=== PATIENT | female | born 1980 | race Caucasian/White ===

== ENCOUNTER → 2020-11-08 01:17 | Outpatient (CLI) | payer OTHER, SELFPAY ==
[2020-11-08 20:24] LABS: SARS-CoV-2 RNA PCR Negative
== END ==
PROVIDERS: PCP Family Medicine; Visit Provider Physician Assistant Medical
DX: R09.89 Other specified symptoms and signs involving the circulatory and respiratory systems (principal); R68.83 Chills (without fever); R19.7 Diarrhea, unspecified; R09.81 Nasal congestion; R52 Pain, unspecified; Z20.822 Contact with and (suspected) exposure to COVID-19
CPT/HCPCS: C9803; U0003; U0005

== ENCOUNTER 2023-01-07 11:02 | Emergency (ER) | payer OTHER, SELFPAY ==
--- NOTE | ~2023-01-07 | XR_ITS ---
EXAMINATION:XR cervical spine 4-5V DATE: 01/07/2023 11:38 INDICATION: Neck pain, right arm numbness TECHNIQUE: AP, lateral, lateral swimmers and odontoid views of the cervical spine are provided. COMPARISON: 12/11/2015 FINDINGS: Alignment is normal. The odontoid process is intact. No fracture is identified. The vertebr al body heights are maintained. There is mild loss of intervertebral disc space height at C5-6, C6-7 and C7-T1. Small degenerative osteophytes project from the anterior endplates of multiple vertebral b odies. There is multilevel mild facet and uncovertebral joint osteoarthritis. Prevertebral soft tissu es are normal. IMPRESSION: 1. Mild cervical spondylosis without acute findings or significant interval change. Reviewed, dictated and finalized at location L. ER ASSOCIATE IMPRESSION: 1. Mild cervical spondylosis without acute findings or significant interval shadi e.
--- NOTE | 2023-01-07 11:15 | ED.GENADULT ---
HPI - General Adult General Chief complaint: Extremity Problem,Nontraumatic Stated complaint: upper extremity pain Time Seen by Provider: 01/07/23 11:17 Source: patient, RN notes reviewed and old records reviewed Mode of arrival: ambulatory Limitations: no limitations History of Present Illness HPI narrative: 42-year-old female with history chronic neck pain, hypertension, pre diabetes, migraines and acid reflux presents to the [facility] with complaints of posterior sure right shoulder pain, radiating down her arm occasionally having fingers 3 and 4 numb Patient has a history of chronic neck pain, arthritis. Has seen a chiropractor in the past for similar episode Patient reports that the pain starts at the base of the right side of her neck and radiates into her shoulder and occasionally down her arm with occasional numbness in fingers 3 and 4. Denies any trauma. No neuro deficits. Positive radial pulse. Sensation intact in all 5 fingers. States that she has tried [id number] products such as Tylenol Motrin with no relief. Related Data Home Medications Medication Instructions Recorded Confirmed aspirin 81 mg tablet,delayed 81 mg PO DAILY 02/22/19 01/07/23 release (Adult Low Dose Aspirin) cholecalciferol (vitamin D3) 125 10,000 unit PO DAILY 02/22/19 01/07/23 mcg (5,000 unit) tablet cyanocobalamin (vitamin B-12) 1,000 mcg PO DAILY 02/22/19 01/07/23 1,000 mcg tablet levonorgestrel 21 mcg/24 hours (8 1 device intrauterine ONCE 02/22/19 01/07/23 yrs) 52 mg intrauterine device (Mirena) propranolol 80 mg capsule,extended 80 mg PO DAILY 02/22/19 01/07/23 release 24 hr rizatriptan 10 mg tablet 10 mg PO .COMPLEX 02/22/19 01/07/23 Allergies Allergy/AdvReac Type Severity Reaction Status Date / Time No Known Allergies Allergy Verified 01/07/23 11:15 Review of Systems Review of Systems: All systems reviewed & are unremarkable except as noted in HPI and below Constitutional: Constitutional: Reports no additional constitutional complaints Eyes: Eyes: Reports no additional eye complaints ENT: Reports system reviewed and no additional complaints, except as documented Cardiovascular: Cardiovascular: Reports no additional cardiovascular complaints, Denies chest pain and Denies dyspnea Respiratory: Respiratory: Reports no additional respiratory complaints, Denies chest congestion, Denies cough and Denies dyspnea Gastrointestinal: Gastrointestinal: Reports no additional gastrointestinal complaints, Denies abdominal pain, Denies nausea and Denies vomiting Musculoskeletal: Musculoskeletal: Reports as per HPI Integumentary/Breasts: Skin/Breast: Reports system reviewed and no additional complaints, except as docu Neurologic: Reports system reviewed and no additional complaints, except as documented Psychiatric: Psychiatric: Reports no additional psychiatric complaints Allergic/Immunologic: Allergic/Immunologic: Reports no additional allergic/immunologic complaints PMFSH Past Medical History Medical History COVID-19 Surgical History Surgical History H/O section Family History Family History Grandparent Carcinoma of colon Family history of malignant neoplasm of breast in first degree relative Family history of elevated blood lipids Family history of alcoholism Family history of malignant neoplasm Family history of malignant neoplasm of breast Mother Hypertension Sibling Hypertension Other Diabetes mellitus Social History Social History Smoking status: Never smoker Alcohol intake: current Lack of Transportation: No Lack of Food: Never True Current Housing: I Have Housing Concerned About Future Housing: No Difficulty Paying Gas/Electric Bills: No Di
[2023-01-07 11:16] VITALS: BP 157/92; PULSE 76; RESP 18; TEMP 36.4; O2SAT 100
== END 2023-01-07 11:55 | disposition home or self-care (01) ==
PROVIDERS: Emergency Provider Nurse Practitioner; PCP Family Medicine
DX: M47.812 Spondylosis without myelopathy or radiculopathy, cervical region (principal); M54.12 Radiculopathy, cervical region; Z86.16 Personal history of COVID-19
CPT/HCPCS: 72050; 99213; G0463

== ENCOUNTER 2024-01-26 10:58 | Outpatient (CLI) | payer OTHER, SELFPAY ==
[2024-01-26 18:59] LABS: Basophils Absolute Auto 0.1 K/mm3 (0.0-0.1); Basophils Percent Auto 1.1 % (0.2-1.2); Eosinophils Absolute Auto 0.1 K/mm3 (0-0.3); Eosinophils Percent Auto 0.9 % (0-4.4); Hemoglobin 13.1 g/dL (12.0-15.0); Immature Granulocyte Absolute 0.03 K/mm3 (0.00-0.031); Immature Granulocyte Percent A 0.3 % (0-0.5); Lymphocytes Absolute Auto 1.27 K/mm3 (0.9-3.2); Lymphocytes Percent Auto 14.4 % (18.3-44.2); Mean Corpuscular HGB Conc 29.8 g/dl (32-36); Mean Corpuscular Volume 80.6 fl (80-100); Mean Platelet Volume 11.2 fl (7.4-10.4); Monocytes Absolute Auto 0.5 K/mm3 (0.1-0.6); Monocytes Percent Auto 5.4 % (2.6-8.5); Neutrophils Absolute Auto 6.9 K/mm3 (1.3-6.7); Neutrophils Percent Auto 77.9 % (45.5-73.1); Platelet Count Result 324 k/mm3 (150-375); Red Blood Count 5.46 M/mm3 (4.2-5.4); Red Cell Distribution Width 17.9 % (11.5-14.5); White Blood Count 8.8 K/mm3 (4.5-10.0)
[2024-01-26 19:02] LABS: Alanine Aminotransferase 21 U/L (6-35); Albumin Level 3.8 g/dL (3.5-5.1); Alkaline Phosphatase 98 U/L (38-126); Anion Gap 2 mmol/L (4-12); Aspartate Amino Transferase 56 U/L (14-36); Bilirubin,Total 0.5 mg/dL (0.2-1.3); Blood Urea Nitrogen 11 mg/dL (7-17); Calcium 8.7 mg/dL (8.4-10.2); Carbon Dioxide 30 mmol/L (22-30); Chloride 107 mmol/L (98-107); Cholesterol 183 mg/dL (0-200); Estimated Glomerular Filt Rate > 60; Glucose 104 mg/dL (65-110); HDL Direct 35 mg/dL; Potassium 4.7 mmol/L (3.4-5.0); Sodium 139 mmol/L (137-145); Triglycerides 146 mg/dL (<150)
[2024-01-26 19:12] LABS: LDL Cholesterol Direct 99 mg/dL
[2024-01-26 20:26] LABS: Anisocytosis 1+; Hypochromasia 1+; Platelet Estimate Adequate (Adequate); Schistocytes None Seen
[2024-01-26 21:15] LABS: Hemoglobin A1C 6.3 % (<5.7)
== END 2024-01-26 10:59 | disposition home or self-care (01) ==
LOC: ANHGOSHLAB 11:00
PROVIDERS: PCP Family Medicine; Visit Provider Family Medicine
DX: E78.2 Mixed hyperlipidemia (principal); E78.5 Hyperlipidemia, unspecified; R73.03 Prediabetes
CPT/HCPCS: 36415; 80053; 80061; 83036; 85025

== ENCOUNTER 2024-08-12 22:28 | Inpatient (IN) | payer OTHER, SELFPAY ==
--- NOTE | ~2024-08-12 | CT_ITS ---
CT of the Abdomen and Pelvis: Indication: Abdominal pain Technique: 2.5 mm axial scans were obtained through the abdomen and pelvis following intravenous adm inistration of 100 cc of Omnipaque 350. Dose reduction technique was used on this scan by utilizing a utomated exposure control and iterative reconstruction technique. The dose-length product (DLP) was 1 650.68 mGy-cm. Findings: Scans through the lung bases are unremarkable. The liver, spleen, pancreas, gallbladder, adrenals and kidneys are within normal limits. No evidence of aortic aneurysm. No lymphadenopathy. There is a large appendicolith at the base of the appendix measuring 18 mm in diameter. Appendix is d iffusely dilated, measuring up to 16 mm in diameter. There is extensive periappendiceal inflammatory stranding and change with small amount of fluid. No abscess or free air evident. There is probable re active wall thickening of the terminal ileum which is adjacent. No bowel obstruction evident. Images through the pelvis were performed. Urinary bladder unremarkable. No pelvic mass seen. Small am ount of pelvic ascites present. There is 14 mm anterolisthesis of L5 over S1 with severe degenerative disc narrowing and probable par tial fusion across L5-S1 disc space. Impression: Acute appendicitis with extensive periappendiceal inflammatory change and/or developing phlegmon. No abscess or free air. Reviewed, dictated and finalized at [facility]. Impression: Acute appendicitis with extensive periappendiceal inflammatory change and/or de veloping phlegmon. No abscess or free air.
--- OUTSIDE RECORDS SUMMARY | 2024-08-12 22:30 | XMS_ITS | Clinical Summary ---
Author Organization [facility] Address [address] [place] [address] Care Team Providers Care Children'S Lunchroom Supervisor Name Role Phone Dallas Milton MD Primary Care Provider [phone] [phone] Allergies No known active allergies Medications omega 7-skf-mqw-fish oil 100-160-1,000 mg capsule Active omeprazole (PriLOSEC) 40 mg capsule TK 1 C PO D 3 09/04/2017 Active simvastatin (ZOCOR) 40 mg tablet TK 1 T PO ONCE D 1 09/04/2017 Active cyanocobalamin (Vitamin B-12) 100 mcg tabletIndication s:Prevention of Vitamin B12 Deficiency Active cholecalciferol (VITAMIN D-3) 5,000 unit tablet Active metFORMIN XR (GLUCOPHAGE XR) 500 mg 24 hr tablet Take 1 tablet (500 mg total) by mouth 2 (two) times a day 12/12/2021 Active rizatriptan (MAXALT) 10 mg tablet TAKE 1 TABLET BY MOUTH AT ONSET OF HEADACHE. MAY REPEAT IN 2 HOURS IF UNRESOLVED. 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 Migraine without aura and responsive to treatmen t 02/21/2016 Paresthesia 02/21/2016 Immunizations Immunization Administration Dates Next Due Influenza, Trivalent, Cell C ulture-based MDCK, Preservative Free, Antibiotic Free, Intramuscular 12/30/2023 Surgical History Surgery Date Site/Laterality Comments MANDIBLE SURGERY Jaw Surgery - TMJ (Added by TW Conv) [place] DELIVERY ONLY Section - (Added by TW Conv) Family History Medical History Relation Name Comments Stroke Brother Family history of cerebrovascular accident (CVA) - (Added by TW Conv) Breast cancer Maternal Grandmother Family history of malignant neoplasm of breast - (Added by TW Conv) Colon cancer Maternal Grandmother Colon c ancer - (Added by TW Conv) Relation Name Status Comments Brother Maternal Grandmother Social History Tobacco Use Types Packs/Day Years Used Date Smoking Tobacco: Never Smokeless Tobacco: Never Tobacco Cessation:Counseling Given: Not Answered Comments Unknown Sex and Gender Information Value Date Recorded Sex Assigned at Not on file Legal Sex Female 12:18 AM DIRECTOR OF BUSINESS SERVICES Gender Identity Not on file Sexual Orientation Not on file Obstetrics History Last Filed Vital Signs Vital Sign Reading Time Taken Comments Blood Pressure 122/85 2024 8:26 AM DIRECTOR OF BUSINESS SERVICES Pulse 71 2024 8:26 AM DIRECTOR OF BUSINESS SERVICES Temperature 36.6 C (97.8 F) 2024 8:26 AM DIRECTOR OF BUSINESS SERVICES Respiratory Rate 18 01/25/2023 11:12 AM DIRECTOR OF BUSINESS SERVICES Oxygen Saturation 97% 2024 8:26 AM DIRECTOR OF BUSINESS SERVICES Inhaled Oxygen Concentration - - Weight 112.9 kg (249 lb) 2024 8:26 AM DIRECTOR OF BUSINESS SERVICES Height 167.6 cm (5' 6) 2024 8:26 AM DIRECTOR OF BUSINESS SERVICES Body Mass Index 40.19 2024 8:26 AM DIRECTOR OF BUSINESS SERVICES Plan of Treatment Health Maintenance Due Date Last Done Comments Breast Cancer Screening-Mammogram 1979 Cervical Cancer Screening 1979 Colon Cancer Screening-Colonoscopy 1979 Depression Screening 1979 Hepatitis C Screening 1979 DTaP/Tdap/Td Vaccine (1 - Tdap) 1990 Hepatitis B Screening 1997 Regular Well Visit/Exam 18-64 1997 Covid-19 Vaccine (2023-2 5 season) 2023 04/14/2020, 03/24/2020 Influenza Vaccine Completed 12/30/2023, 02/08/2020 HPV Vaccines Aged Out No longer eligi ble based on patient's age to complete this topic Pneumococcal vaccine <65 Aged Out No longer eligible based on patient's age to complete this topic Insurance [facility] [employer] [facility]O Address: [place] [id number] [employer] [employer] [facility] [employer]O Address: [id number] [place] [address] Care Teams Children'S Lunchroom Supervisor Relationship Specialty Start Date End Date Dallas Milton MD PCP - General 10/23/16
--- OUTSIDE RECORDS SUMMARY | 2024-08-12 22:30 | XMS_ITS | Referral Summary ---
Author Organization [facility] Address [address] [place] [address] Care Team Providers Care Assessment Specialist Name Role Phone Dallas Milton MD Primary Care Provider [phone] [phone] Allergies No known active allergies Medications omega 6-udr-oiz-fish oil 100-160-1,000 mg capsule Active omeprazole (PriLOSEC) [...] MDCK, Preservative Free, Antibiotic Free, Intramuscular 12/30/2023 Social History Tobacco Use Types Packs/Day Years Used Date Smoking Tobacco: Never Smokeless Tobacco: Never Tobacco Cessation:Counseling Given: Not Answered Comments Unknown Sex and Gender Information Value Date Recorded Sex Assigned at Not on file Legal Sex Female 12:18 AM ORNAMENTAL BRICK INSTALLER Gender Identity Not on file Sexual Orientation Not on file Last Filed Vital Signs Vital Sign Reading Time Taken Comments Blood Pressure 122/85 2024 8:26 AM ORNAMENTAL BRICK INSTALLER Pulse 71 2024 8:26 AM ORNAMENTAL BRICK INSTALLER Temperature 36.6 C (97.8 F) 2024 8:26 AM ORNAMENTAL BRICK INSTALLER Respiratory Rate 18 01/25/2023 11:12 AM ORNAMENTAL BRICK INSTALLER Oxygen Saturation 97% 2024 8:26 AM ORNAMENTAL BRICK INSTALLER Inhaled Oxygen Concentration - - Weight 112.9 kg (249 lb) 2024 8:26 AM ORNAMENTAL BRICK INSTALLER Height 167.6 cm (5' 6) 2024 8:26 AM ORNAMENTAL BRICK INSTALLER Body Mass Index 40.19 2024 8:26 AM ORNAMENTAL BRICK INSTALLER Plan of Treatment Not on file Insurance [employer] [facility]/PPO Address: [facility] [id number] [place] [address] [facility] [employer] [facility] HMO/PPO Address: [facility] [id number] [place] [id number] Care Teams Assessment Specialist Relationship Specialty Start Date End Date Dallas Milton MD PCP - General 10/23/16
--- OUTSIDE RECORDS SUMMARY | 2024-08-12 22:56 | XMS_ITS | Referral Summary ---
Author Organization [facility] Address [address] [place] [address] Care Team Providers Care Box Lining Machine Operator Name Role Phone Dallas Milton MD Primary Care Provider [phone] [phone] Allergies No known active allergies Medications omega 0-rbi-ejc-fish oil 100-160-1,000 mg capsule Active omeprazole (PriLOSEC) [...] on file Legal Sex Female 12:18 AM GANG VIBRATOR OPERATOR Gender Identity Not on file Sexual Orientation Not on file Last Filed Vital Signs Vital Sign Reading Time Taken Comments Blood Pressure 122/85 2024 8:26 AM GANG VIBRATOR OPERATOR Pulse 71 2024 8:26 AM GANG VIBRATOR OPERATOR Temperature 36.6 C (97.8 F) 2024 8:26 AM GANG VIBRATOR OPERATOR Respiratory Rate 18 01/25/2023 11:12 AM GANG VIBRATOR OPERATOR Oxygen Saturation 97% 2024 8:26 AM GANG VIBRATOR OPERATOR Inhaled Oxygen Concentration - - Weight 112.9 kg (249 lb) 2024 8:26 AM GANG VIBRATOR OPERATOR Height 167.6 cm (5' 6) 2024 8:26 AM GANG VIBRATOR OPERATOR Body Mass Index 40.19 2024 8:26 AM GANG VIBRATOR OPERATOR Plan of Treatment Not on file Insurance [facility] [employer]ES [employer] Care Teams Box Lining Machine Operator Relationship Specialty Start Date End Date Dallas Milton MD PCP - General 10/23/16
--- OUTSIDE RECORDS SUMMARY | 2024-08-12 22:57 | XMS_ITS | Clinical Summary ---
Author Organization [facility] Address [address] [place] [address] Care Team Providers Care Waistline Joiner Name Role Phone Dallas Milton MD Primary Care Provider [phone] [phone] Allergies No known active allergies Medications omega 4-sbd-wym-fish oil 100-160-1,000 mg capsule Active omeprazole (PriLOSEC) [...] Surgery - TMJ (Added by TW Conv) [place] DELIVERY ONLY Section - (Added by TW [...] on file Legal Sex Female 12:18 AM POLICE CHIEF DEPUTY Gender Identity Not on file Sexual Orientation Not on file Obstetrics History Last Filed Vital Signs Vital Sign Reading Time Taken Comments Blood Pressure 122/85 2024 8:26 AM POLICE CHIEF DEPUTY Pulse 71 2024 8:26 AM POLICE CHIEF DEPUTY Temperature 36.6 C (97.8 F) 2024 8:26 AM POLICE CHIEF DEPUTY Respiratory Rate 18 01/25/2023 11:12 AM POLICE CHIEF DEPUTY Oxygen Saturation 97% 2024 8:26 AM POLICE CHIEF DEPUTY Inhaled Oxygen Concentration - - Weight 112.9 kg (249 lb) 2024 8:26 AM POLICE CHIEF DEPUTY Height 167.6 cm (5' 6) 2024 8:26 AM POLICE CHIEF DEPUTY Body Mass Index 40.19 2024 8:26 AM POLICE CHIEF DEPUTY Plan of Treatment Health Maintenance Due Date [...] patient's age to complete this topic Insurance [facility] [employer] [facility] H[employer]/PPO Address: [place] [id number] [facility] [employer] [employer] [facility] [facility] [employer] H[employer]/PPO Address: [place] [id number] [place] [address] Care Teams Waistline Joiner Relationship Specialty Start Date End Date Dallas Milton MD PCP - General 10/23/16
[2024-08-12 23:02] VITALS: BP 142/78; PULSE 95; RESP 20; TEMP 37.1; O2SAT 95
--- NOTE | 2024-08-12 23:11 | ECG_ITS ---
Test Date: 2024-08-12 23:42:08 Measurements Intervals [place] Rate: 90 P: 24 MI: 156 QRS: 26 QRSD: 75 T: 39 QT: 336 QTc: 413 Interpretive Statements SINUS RHYTHM MINIMAL Q WAVES- INFERIOR LEADS BORDERLINE ECG No previous ECG available for comparison Electronically Signed On 08-13-2024 06:26:11 CDT by Jaguar Del Cid D.O.
--- NOTE | 2024-08-12 23:16 | ED.ABDPAIN ---
HPI - Abdominal Pain General Chief Complaint: Abdominal Pain <Bertha Ramirez APRN - Last Filed: 08/13/24 02:48> Stated Complaint: abd pain <Bertha Ramirez APRN - Last Filed: 08/13/24 02:48> Time Seen by Provider: 08/12/24 22:30 <Bertha Ramirez APRN - Last Filed: 08/13/24 02:48> History of Present Illness HPI narrative: Patient is a 44-year-old female who presents to the ER with right lower quadrant abdominal pain. She reports her pain started on Friday, 3 days ago. Patient reports she went to her primary care provider who is concerned about her appendix it is and advised her to come to the ER for further evaluation if needed. She reports she has a medical history including 2 C sections, high blood pressure, prediabetes, and migraines. Patient reports her last bowel movement was on Friday and was normal for her. She denies any history of ovarian cysts, urinary symptoms, recent fevers or chest pain. Patient reports her last menstrual period was on August 02, 2024. She reports she has no OBGYN the them regularly. Patient endorses nausea and reports she vomited twice yesterday. <Bertha Ramirez APRN - Last Filed: 08/13/24 02:48> Related Data Home Medications: Home Medications ?Medication ?Instructions ?Recorded ?Confirmed ?Last Taken ?Type aspirin 81 mg tablet,delayed 81 mg PO DAILY 02/22/19 08/11/24 Unknown History release (Adult Low Dose Aspirin) cholecalciferol (vitamin D3) 125 10,000 unit PO DAILY 02/22/19 08/11/24 Unknown History mcg (5,000 unit) tablet cyanocobalamin (vitamin B-12) 1,000 mcg PO DAILY 02/22/19 08/11/24 Unknown History 1,000 mcg tablet rizatriptan 10 mg tablet 10 mg PO .COMPLEX 02/22/19 08/11/24 Unknown History norgestrel 0.3 mg-ethinyl tablet PO 08/11/24 08/11/24 Unknown History estradiol 30 mcg tablet (Geoff (28)) propranolol 80 mg capsule,24 mg PO 08/11/24 08/11/24 Unknown History hr,extended release <Bertha Ramirez APRN - Last Filed: 08/13/24 02:48> Allergies/Adverse Reactions: Allergies Allergy/AdvReac Type Severity Reaction Status Date / Time No Known Allergies Allergy Verified 08/12/24 22:29 <Bertha Ramirez APRN - Last Filed: 08/13/24 02:48> Review of Systems Review of Systems: All systems reviewed & are unremarkable except as noted in HPI and below <Bertha Ramirez APRN - Last Filed: 08/13/24 02:48> [facility] Past Medical History Medical History: Medical History COVID-19 <Bertha Ramirez APRN - Last Filed: 08/13/24 02:48> Surgical History Surgical History: Surgical History H/O section <Bertha Ramirez APRN - Last Filed: 08/13/24 02:48> Family History Family History: Family History Grandparent Carcinoma of colon Family history of malignant neoplasm of breast in first degree relative Family history of elevated blood lipids Family history of alcoholism Family history of malignant neoplasm Family history of malignant neoplasm of breast Mother Hypertension Sibling Hypertension Other Diabetes mellitus <Bertha Ramirez APRN - Last Filed: 08/13/24 02:48> Social History Social History: Social History Smoking status: Never smoker Alcohol intake: current Drinks per week: 2 Substance use: never Substance use type: does not use Do You Feel Safe in your Home?: Yes Lack of Transportation: No Lack of Food: Never True Current Housing: I Have Housing Concerned About Future Housing: No Difficulty Paying Gas/Electric Bills: No Difficulty Paying for Meds: No Currently Unemployed: No Education: Associate Degree Difficulty w/ Childcare or Family Care: No <Bertha Ramirez APRN - Last Filed: 08/13/24 02:48> Exam Narrative: GENERAL: Well appearing, well-nourished, non-toxic, in no acute distress. HEAD: Normocephalic, atraumatic. NECK: Supple. No adenopathy, no masses. RESPIRATORY: Airway patent, respirations nonlabored. Clear to auscultation bilaterally, no rales, rhonchi, wheezing. CARDIOVASCULAR: Regular rate and rhythm without murmurs, rubs, or gallops. Peripheral pulses 2+ and equal bilaterally. ABDOMINAL: Soft, tender RLQ, nondistended, no hepatosplenomegaly. Normoactive BS. + Pardo sign, + psoas sign, + McBurney's point MUSCULOSKELETAL: Moves all extremities. Strength/ROM intact without gross deformities. SKIN: Warm, dry, normal color. No rashes. NEURO: A&O X3. Speech clear. Cranial nerves II-XII intact. No ataxic movements. PSYCHIATRIC: Appropriate mood and affect. Normal interaction. <Bertha Ramirez APRN - Last Filed: 08/13/24 02:48> Course Course Emergency Course: Discussed case with General surgery, Dr. Tran. Admit to his service. NPO at midnight. IV Zosyn. Likely OR in the morning. Patient educated on diagnosis and treatment plan as well as imaging results. <Rashard Ac MD - Last Filed: 08/13/24 03:38> Vital Signs Vital signs: Vital Signs Temperature 98.8 F 08/12/24 23:02 Pulse Rate 95 08/12/24 23:02 Respiratory Rate 20 08/12/24 23:02 Blood Pressure 142/78 H 08/12/24 23:02 Pulse Oximetry 95 08/12/24 23:02 Oxygen Delivery Room Air 08/12/24 23:02 Temperature 98.8 F 08/12/24 23:02 Pulse Rate 88 08/13/24 00:01 Respiratory Rate 16 08/13/24 00:01 Blood Pressure 116/68 08/13/24 00:01 Pulse Oximetry 98 08/13/24 00:01 Oxygen Delivery Room Air 08/12/24 23:02 <Bertha Ramirez APRN - Last Filed: 08/13/24 02:48> Vital Signs Temperature 98.8 F 08/12/24 23:02 Pulse Rate 95 08/12/24 23:02 Respiratory Rate 20 08/12/24 23:02 Blood Pressure 142/78 H 08/12/24 23:02 Pulse Oximetry 95 08/12/24 23:02 Oxygen Delivery Room Air 08/12/24 23:02 Temperature 98.8 F 08/12/24 23:02 Pulse Rate 88 08/13/24 00:01 Respiratory Rate 16 08/13/24 00:01 Blood Pressure 116/68 08/13/24 00:01 Pulse Oximetry 98 08/13/24 00:01 Oxygen Delivery Room Air 08/12/24 23:02 <Rashard Ac MD - Last Filed: 08/13/24 03:38> MDM - Abdominal Pain MDM Narrative Medical decision making narrative: Patient is a 44-year-old female who presents to the ER with right lower quadrant abdominal pain. She reports her pain started on Friday, 3 days ago. Patient reports she went to her primary care provider who is concerned about her appendix it is and advised her to come to the ER for further evaluation if needed. She reports she has a medical history including 2 C sections, high blood pressure, prediabetes, and migraines. Patient reports her last bowel movement was on Friday and was normal for her. She denies any history of ovarian cysts, urinary symptoms, recent fevers or chest pain. Patient reports her last menstrual period was on August 02, 2024. She reports she has no OBGYN the them regularly. Patient endorses nausea and reports she vomited twice yesterday. Labs Ordered: CBC, CMP, troponin, lactic acid, lipase Imaging Ordered: CT abdomen pelvis Medications Ordered: Toradol 30 mg IV, 3L NS IV bolus, Zosyn IV Results: Patient's CBC indicates a white blood cell count of 22.4, red blood cell count of 5.42. Her CMP indicates a sodium of 132, glucose of 130, and AST of 43, and an albumin of 3.4. Patient's lipase is 83. Her urinalysis indicates 3+ protein, trace ketones, trace blood, 1+ bilirubin. Plan: Pt's WBC is elevated so she will be given 3L NS IV bolus, Zosyn IV, and blood cultures will be drawn. [id number] signed out to Dr. Ac at shift change pending STAT RAD CT results. <Bertha Ramirez APRN - Last Filed: 08/13/24 02:48> Differential Diagnosis Differential diagnosis: Likely acute appendicitis, calculus of kidney, constipation and small bowel obstruction <Bertha Ramirez DATA STORAGE SPECIALIST - Last Filed: 08/13/24 02:48> Lab Data Attestation: I reviewed the patient's lab results. <Bertha Ramirez DATA STORAGE SPECIALIST - Last Filed: 08/13/24 02:48> Result diagrams: 08/12/24 23:15 08/12/24 23:15 <Bertha Ramirez, DATA STORAGE SPECIALIST - Last Filed: 08/13/24 02:48> Labs: Lab Results 08/12/24 08/12/24 08/13/24 Range/Units 23:15 23:58 00:00 WBC 22.4 H (4.5-10.0) K/mm3 RBC 5.42 H (4.2-5.4) M/mm3 Hgb 12.1 (12.0-15.0) g/dL Hct 40.5 (37.0-47.0) % MCV 74.7 L (80-100) fl MCH 22.3 L (26-34) pg MCHC 29.9 L (32-36) g/dl RDW 16.8 H (11.5-14.5) % Plt Count 349 (150-375) k/mm3 MPV 10.5 H (7.4-10.4) fl Immature Gran % (Auto) 1.1 H (0-0.5) % Neut % (Auto) 87.6 H (45.5-73.1) % Lymph % (Auto) 4.5 L (18.3-44.2) % [place] % (Auto) 6.5 (2.6-8.5) % Eos % (Auto) 0.0 (0-4.4) % Baso % (Auto) 0.3 (0.2-1.2) % Lymph # (Auto) 1.01 (0.9-3.2) K/mm3 [place] # (Auto) 1.5 H (0.1-0.6) K/mm3 Eos # (Auto) 0.0 (0-0.3) K/mm3 Baso # (Auto) 0.1 (0.0-0.1) K/mm3 Abs Immat Gran (auto) 0.25 H (0.00-0.031) K/mm3 Absolute Neuts (auto) 19.7 H (1.3-6.7) K/mm3 Absolute Nucleated RBC 0.000 (0.0-0.012) K/mm3 Band Neutrophils % 0 (0-6) % Nucleated RBC % 0.0 (0.0-0.2) % Platelet Estimate Adequate (Adequate) Hypochromasia 1+ Anisocytosis 1+ Ovalocytes 1+ Schistocytes None seen PT (11.1-14.7) Seconds INR APTT (22.3-36.8) Seconds Sodium 132 L (137-145) mmol/L Potassium 3.7 (3.4-5.0) mmol/L Chloride 98 (98-107) mmol/L Carbon Dioxide 26 (22-30) mmol/L Anion Gap 8 (4-12) mmol/L BUN 7 (7-17) mg/dL Creatinine 0.90 (0.7-1.0) mg/dL Estim Creat Clear Calc 90 ml/min Estimated GFR > 60 (59 - ) Glucose 130 H (65-110) mg/dL Lactic Acid 1.0 (0.7-2.0) mmol/L Calcium 8.8 (8.4-10.2) mg/dL Total Bilirubin 0.4 (0.2-1.3) mg/dL AST 43 H (14-36) U/L ALT 20 (6-35) U/L Alkaline Phosphatase 96 (38-126) U/L Troponin I < 0.012 (0.000-0.034) ng/mL C-Reactive Protein (<1.0) mg/dL Total Protein 6.3 (6.3-8.2) g/dL Albumin 3.4 L (3.5-5.1) g/dL Lipase 83 (23-300) U/L Urine Color Dark yellow (Yellow) Urine Appearance Sl cloudy (Clear) Urine pH 6.0 (5.0-9.0) Ur Specific [place] >= 1.030 (1.001-1.035) Urine Protein 3+ H (Negative) mg/dL Urine Glucose (UA) Negative (Negative) mg/dL Urine Ketones Trace H (Negative) mg/dL Ur Blood (Man) Trace-intact H (Negative) Urine Nitrate Negative (Negative) Urine Bilirubin 1+ H (Negative) Urine Urobilinogen 0.2 (<2.0) mg/dL Add Ur Microanalysis Reviewed Leukocyte Esterase Rfl Negative (Negative) KAILA/UL Urine RBC 3-5 H (0-2) /hpf Urine WBC 0-5 (0-3) /hpf Ur Squamous Epith Cells Moderate (Few) /hpf Urine Bacteria 3+ H /hpf Urine Casts 3-5 Hyaline Casts Present (None) /lpf Urine Mucus Present /lpf POC Urine HCG, Qual Negative (Negative) 08/13/24 Range/Units 02:35 WBC (4.5-10.0) K/mm3 RBC (4.2-5.4) M/mm3 Hgb (12.0-15.0) g/dL Hct (37.0-47.0) % MCV (80-100) fl MCH (26-34) pg MCHC (32-36) g/dl RDW (11.5-14.5) % Plt Count (150-375) k/mm3 MPV (7.4-10.4) fl Immature Gran % (Auto) (0-0.5) % Neut % (Auto) (45.5-73.1) % Lymph % (Auto) (18.3-44.2) % [place] % (Auto) (2.6-8.5) % Eos % (Auto) (0-4.4) % Baso % (Auto) (0.2-1.2) % Lymph # (Auto) (0.9-3.2) K/mm3 [place] # (Auto) (0.1-0.6) K/mm3 Eos # (Auto) (0-0.3) K/mm3 Baso # (Auto) (0.0-0.1) K/mm3 Abs Immat Gran (auto) (0.00-0.031) K/mm3 Absolute Neuts (auto) (1.3-6.7) K/mm3 Absolute Nucleated RBC (0.0-0.012) K/mm3 Band Neutrophils % (0-6) % Nucleated RBC % (0.0-0.2) % Platelet Estimate (Adequate) Hypochromasia Anisocytosis Ovalocytes Schistocytes PT 16.2 H (11.1-14.7) Seconds INR 1.3 APTT 27.8 (22.3-36.8) Seconds Sodium (137-145) mmol/L Potassium (3.4-5.0) mmol/L Chloride (98-107) mmol/L Carbon Dioxide (22-30) mmol/L Anion Gap (4-12) mmol/L BUN (7-17) mg/dL Creatinine (0.7-1.0) mg/dL Estim Creat Clear Calc ml/min Estimated GFR (59 - ) Glucose (65-110) mg/dL Lactic Acid 1.0 (0.7-2.0) mmol/L Calcium (8.4-10.2) mg/dL Total Bilirubin (0.2-1.3) mg/dL AST (14-36) U/L ALT (6-35) U/L Alkaline Phosphatase (38-126) U/L Troponin I (0.000-0.034) ng/mL C-Reactive Protein 24.2 H (<1.0) mg/dL Total Protein (6.3-8.2) g/dL Albumin (3.5-5.1) g/dL Lipase (23-300) U/L Urine Color (Yellow) Urine Appearance (Clear) Urine pH (5.0-9.0) Ur Specific [place] (1.001-1.035) Urine Protein (Negative) mg/dL Urine Glucose (UA) (Negative) mg/dL Urine Ketones (Negative) mg/dL Ur Blood (Man) (Negative) Urine Nitrate (Negative) Urine Bilirubin (Negative) Urine Urobilinogen (<2.0) mg/dL Add Ur Microanalysis Leukocyte Esterase Rfl (Negative) KAILA/UL Urine RBC (0-2) /hpf Urine WBC (0-3) /hpf Ur Squamous Epith Cells (Few) /hpf Urine Bacteria /hpf Urine Casts Hyaline Casts (None) /lpf Urine Mucus /lpf POC Urine HCG, Qual (Negative) <Bertha Ramirez APRN - Last Filed: 08/13/24 02:48> Lab Results 08/12/24 08/12/24 08/13/24 Range/Units 23:15 23:58 00:00 WBC 22.4 H (4.5-10.0) K/mm3 RBC 5.42 H (4.2-5.4) M/mm3 Hgb 12.1 (12.0-15.0) g/dL Hct 40.5 (37.0-47.0) % MCV 74.7 L (80-100) fl MCH 22.3 L (26-34) pg MCHC 29.9 L (32-36) g/dl RDW 16.8 H (11.5-14.5) % Plt Count 349 (150-375) k/mm3 MPV 10.5 H (7.4-10.4) fl Immature Gran % (Auto) 1.1 H (0-0.5) % Neut % (Auto) 87.6 H (45.5-73.1) % Lymph % (Auto) 4.5 L (18.3-44.2) % [place] % (Auto) 6.5 (2.6-8.5) % Eos % (Auto) 0.0 (0-4.4) % Baso % (Auto) 0.3 (0.2-1.2) % Lymph # (Auto) 1.01 (0.9-3.2) K/mm3 [place] # (Auto) 1.5 H (0.1-0.6) K/mm3 Eos # (Auto) 0.0 (0-0.3) K/mm3 Baso # (Auto) 0.1 (0.0-0.1) K/mm3 Abs Immat Gran (auto) 0.25 H (0.00-0.031) K/mm3 Absolute Neuts (auto) 19.7 H (1.3-6.7) K/mm3 Absolute Nucleated RBC 0.000 (0.0-0.012) K/mm3 Band Neutrophils % 0 (0-6) % Nucleated RBC % 0.0 (0.0-0.2) % Platelet Estimate Adequate (Adequate) Hypochromasia 1+ Anisocytosis 1+ Ovalocytes 1+ Schistocytes None seen PT (11.1-14.7) Seconds INR APTT (22.3-36.8) Seconds Sodium 132 L (137-145) mmol/L Potassium 3.7 (3.4-5.0) mmol/L Chloride 98 (98-107) mmol/L Carbon Dioxide 26 (22-30) mmol/L Anion Gap 8 (4-12) mmol/L BUN 7 (7-17) mg/dL Creatinine 0.90 (0.7-1.0) mg/dL Estim Creat Clear Calc 90 ml/min Estimated GFR > 60 (59 - ) Glucose 130 H (65-110) mg/dL Lactic Acid 1.0 (0.7-2.0) mmol/L Calcium 8.8 (8.4-10.2) mg/dL Total Bilirubin 0.4 (0.2-1.3) mg/dL AST 43 H (14-36) U/L ALT 20 (6-35) U/L Alkaline Phosphatase 96 (38-126) U/L Troponin I < 0.012 (0.000-0.034) ng/mL C-Reactive Protein (<1.0) mg/dL Total Protein 6.3 (6.3-8.2) g/dL Albumin 3.4 L (3.5-5.1) g/dL Lipase 83 (23-300) U/L Urine Color Dark yellow (Yellow) Urine Appearance Sl cloudy (Clear) Urine pH 6.0 (5.0-9.0) Ur Specific [place] >= 1.030 (1.001-1.035) Urine Protein 3+ H (Negative) mg/dL Urine Glucose (UA) Negative (Negative) mg/dL Urine Ketones Trace H (Negative) mg/dL Ur Blood (Man) Trace-intact H (Negative) Urine Nitrate Negative (Negative) Urine Bilirubin 1+ H (Negative) Urine Urobilinogen 0.2 (<2.0) mg/dL Add Ur Microanalysis Reviewed Leukocyte Esterase Rfl Negative (Negative) KAILA/UL Urine RBC 3-5 H (0-2) /hpf Urine WBC 0-5 (0-3) /hpf Ur Squamous Epith Cells Moderate (Few) /hpf Urine Bacteria 3+ H /hpf Urine Casts 3-5 Hyaline Casts Present (None) /lpf Urine Mucus Present /lpf POC Urine HCG, Qual Negative (Negative) 08/13/24 Range/Units 02:35 WBC (4.5-10.0) K/mm3 RBC (4.2-5.4) M/mm3 Hgb (12.0-15.0) g/dL Hct (37.0-47.0) % MCV (80-100) fl MCH (26-34) pg MCHC (32-36) g/dl RDW (11.5-14.5) % Plt Count (150-375) k/mm3 MPV (7.4-10.4) fl Immature Gran % (Auto) (0-0.5) % Neut % (Auto) (45.5-73.1) % Lymph % (Auto) (18.3-44.2) % [place] % (Auto) (2.6-8.5) % Eos % (Auto) (0-4.4) % Baso % (Auto) (0.2-1.2) % Lymph # (Auto) (0.9-3.2) K/mm3 [place] # (Auto) (0.1-0.6) K/mm3 Eos # (Auto) (0-0.3) K/mm3 Baso # (Auto) (0.0-0.1) K/mm3 Abs Immat Gran (auto) (0.00-0.031) K/mm3 Absolute Neuts (auto) (1.3-6.7) K/mm3 Absolute Nucleated RBC (0.0-0.012) K/mm3 Band Neutrophils % (0-6) % Nucleated RBC % (0.0-0.2) % Platelet Estimate (Adequate) Hypochromasia Anisocytosis Ovalocytes Schistocytes PT 16.2 H (11.1-14.7) Seconds INR 1.3 APTT 27.8 (22.3-36.8) Seconds Sodium (137-145) mmol/L Potassium (3.4-5.0) mmol/L Chloride (98-107) mmol/L Carbon Dioxide (22-30) mmol/L Anion Gap (4-12) mmol/L BUN (7-17) mg/dL Creatinine (0.7-1.0) mg/dL Estim Creat Clear Calc ml/min Estimated GFR (59 - ) Glucose (65-110) mg/dL Lactic Acid 1.0 (0.7-2.0) mmol/L Calcium (8.4-10.2) mg/dL Total Bilirubin (0.2-1.3) mg/dL AST (14-36) U/L ALT (6-35) U/L Alkaline Phosphatase (38-126) U/L Troponin I (0.000-0.034) ng/mL C-Reactive Protein 24.2 H (<1.0) mg/dL Total Protein (6.3-8.2) g/dL Albumin (3.5-5.1) g/dL Lipase (23-300) U/L Urine Color (Yellow) Urine Appearance (Clear) Urine pH (5.0-9.0) Ur Specific [place] (1.001-1.035) Urine Protein (Negative) mg/dL Urine Glucose (UA) (Negative) mg/dL Urine Ketones (Negative) mg/dL Ur Blood (Man) (Negative) Urine Nitrate (Negative) Urine Bilirubin (Negative) Urine Urobilinogen (<2.0) mg/dL Add Ur Microanalysis Leukocyte Esterase Rfl (Negative) KAILA/UL Urine RBC (0-2) /hpf Urine WBC (0-3) /hpf Ur Squamous Epith Cells (Few) /hpf Urine Bacteria /hpf Urine Casts Hyaline Casts (None) /lpf Urine Mucus /lpf POC Urine HCG, Qual (Negative) <Rashard Ac MD - Last Filed: 08/13/24 03:38> Imaging Data Radiologist's impression: CT abdomen pelvis: Positive for acute appendicitis, consisting of a distended appendix, measuring up to 1.6 cm, with severe surrounding inflammation. Micro perforation not excluded. Surgical evaluation recommended. <Rashard Ac MD - Last Filed: 08/13/24 03:38> Discharge Plan Discharge Clinical Impression: Appendicitis, Elevated white blood cell count <Bertha Ramirez APRN - Last Filed: 08/13/24 02:48> Patient Disposition: Still a Patient <Bertha Ramirez APRN - Last Filed: 08/13/24 02:48> Condition: Stable <Bertha Ramirez APRN - Last Filed: 08/13/24 02:48> Instructions: Antibiotic Form <Bertha Ramirez APRN - Last Filed: 08/13/24 02:48> Patient Language: Chinese <Bertha Ramirez APRN - Last Filed: 08/13/24 02:48> Prescriptions: No Action metformin 500 mg tablet extended release 24 hr 500 mg PO BID Qty: 180 3RF propranolol 80 mg capsule,extended release 24 hr PO [place] (28) 0.3-30 mg-mcg tablet PO omeprazole 40 mg capsule,delayed release(DR/EC) 80 mg PO DAILY Qty: 180 1RF sucralfate [Carafate] 1 gram tablet 1 g PO Q4H PRN (Reason: abdominal pain) Qty: 90 1RF aspirin [Adult Low Dose Aspirin] 81 mg tablet,delayed release (DR/EC) 81 mg PO DAILY rizatriptan 10 mg tablet 10 mg PO .COMPLEX Rx Instructions: Take 1 tablet at onset of migraine, may repeat at 2 hour intervals--Do not exceed 30mg in 24 hours cyanocobalamin (vitamin B-12) 1,000 mcg tablet 1,000 mcg PO DAILY cholecalciferol (vitamin D3) 125 mcg (5,000 unit) tablet 10,000 unit PO DAILY simvastatin 40 mg tablet See Rx Instructions .ROUTE .COMPLEX Qty: 90 1RF Dose Instruction: TAKE 1 TABLET BY MOUTH DAILY Rx Instructions: TAKE 1 TABLET BY MOUTH DAILY <Bertha Ramirez APRN - Last Filed: 08/13/24 02:48> Follow-up/Referrals: Dallas Milton MD [Primary Care Provider] - <Bertha Ramirez APRN - Last Filed: 08/13/24 02:48>
[2024-08-12 23:30] LABS: Basophils Absolute Auto 0.1 K/mm3 (0.0-0.1); Basophils Percent Auto 0.3 % (0.2-1.2); Hematocrit 40.5 % (37.0-47.0); Hemoglobin 12.1 g/dL (12.0-15.0); Immature Granulocyte Absolute 0.25 K/mm3 (0.00-0.031); Immature Granulocyte Percent A 1.1 % (0-0.5); Lymphocytes Absolute Auto 1.01 K/mm3 (0.9-3.2); Lymphocytes Percent Auto 4.5 % (18.3-44.2); Mean Corpuscular HGB Conc 29.9 g/dl (32-36); Mean Corpuscular Hemoglobin 22.3 pg (26-34); Mean Corpuscular Volume 74.7 fl (80-100); Mean Platelet Volume 10.5 fl (7.4-10.4); Monocytes Absolute Auto 1.5 K/mm3 (0.1-0.6); Monocytes Percent Auto 6.5 % (2.6-8.5); Neutrophils Absolute Auto 19.7 K/mm3 (1.3-6.7); Neutrophils Percent Auto 87.6 % (45.5-73.1); Platelet Count Result 349 k/mm3 (150-375); Red Blood Count 5.42 M/mm3 (4.2-5.4); Red Cell Distribution Width 16.8 % (11.5-14.5); White Blood Count 22.4 K/mm3 (4.5-10.0)
[2024-08-12] MEDS: KETOROLAC 30 MG/ML VIAL (*BKC) IV PUSH (23:32)
--- NOTE | 2024-08-12 23:46 | PC.NURSE ---
pt informed of need to get urine for preg test for ct. verbalized understanding
[2024-08-12 23:51] LABS: Alanine Aminotransferase 20 U/L (6-35); Albumin Level 3.4 g/dL (3.5-5.1); Alkaline Phosphatase 96 U/L (38-126); Anion Gap 8 mmol/L (4-12); Aspartate Amino Transferase 43 U/L (14-36); Bilirubin,Total 0.4 mg/dL (0.2-1.3); Blood Urea Nitrogen 7 mg/dL (7-17); Calcium 8.8 mg/dL (8.4-10.2); Carbon Dioxide 26 mmol/L (22-30); Chloride 98 mmol/L (98-107); Estimated CRCL calculation 90 ml/min; Estimated Glomerular Filt Rate > 60; Glucose 130 mg/dL (65-110); Lipase 83 U/L (23-300); Potassium 3.7 mmol/L (3.4-5.0); Sodium 132 mmol/L (137-145); Total Protein 6.3 g/dL (6.3-8.2)
[2024-08-12 23:56] LABS: Troponin I < 0.012 ng/mL (0.000-0.034)
[2024-08-13] VITALS (21 sets, daily range): BP systolic 101–151; BP diastolic 45–86; PULSE 80–104; RESP 14–28; TEMP 36.4–37.3; O2SAT 91–100; BMI 42.5
[2024-08-13 00:06] LABS: Anisocytosis 1+; Band Neutrophils Percent 0 % (0-6); Hypochromasia 1+; Ovalocytes 1+; Platelet Estimate Adequate (Adequate); Schistocytes None Seen
[2024-08-13 00:22] LABS: Add Urine Microscopic? YES; Appearance Urine Sl Cloudy (Clear); Bilirubin Urine 1+ (Negative); Blood Urine Trace-intact (Negative); Color Urine Dark Yellow (Yellow); Glucose Urine UA Negative (Negative); Ketones Urine Trace mg/dL (Negative); Nitrate Urine Negative (Negative); Protein Urine 3+ mg/dL (Negative); Specific Grav Ur >= 1.030 (1.001-1.035); Urobilinogen Urine 0.2 mg/dL (<2.0)
[2024-08-13 00:23] LABS: Leukocyte Esterase Ur Negative LEU/UL (Negative)
[2024-08-13 00:25] LABS: Bacteria Urine 3+ /hpf; Hyaline Casts Urine Present /lpf; Mucus Urine Present /lpf; Need Manual Microscopic Reviewed; Squamous Epithelial Cell Urine Moderate /hpf (Few); WBC Urine 0-5 /hpf (0-3)
[2024-08-13 02:08] LABS: BEDSIDEPREGUCG Negative (Negative)
[2024-08-13] MEDS: PIPERACILLN/TAZ 3.375GM/NS50ML 3.375 GM/50 ML BAG IVPB ×4 (02:23→19:55)
[2024-08-13] MEDS: SODIUM CHLORIDE 0.9% IV 1,000 ML 999 ML IV CONT ×3 (02:24→02:25)
[2024-08-13] MEDS: SODIUM CHLORIDE 0.9% IV 600 ML 999 ML IV CONT (02:26)
[2024-08-13 03:07] LABS: INR 1.3; Prothrombin Time 16.2 Seconds (11.1-14.7)
[2024-08-13 03:08] LABS: Partial Thromboplastin Time 27.8 Seconds (22.3-36.8)
[2024-08-13 03:21] LABS: CRP 24.2 mg/dL (<1.0)
[2024-08-13] MEDS: HYDROmorphone HCL INJ (*CRX) 2 MG/ML VIAL 1 MG IV PUSH (03:53)
[2024-08-13] MEDS: SODIUM CHLORIDE 0.9% IV 1,000 ML 125 ML IV CONT (04:52)
[2024-08-13] MEDS: ONDANSETRON INJ 4 MG/2 ML VIAL IV PUSH ×3 (04:57→13:02)
--- NOTE | 2024-08-13 05:31 | ADMGEN ---
This patient, Alaina Alcocer, was admitted to 3 [facility] Surg Room 320-01 at 0450. Patient/family oriented to hospital policies and general routines including ID bracelet, bed and alarms, visiting hours, pain management, procedures, bathroom and other care routines, personal items, smoking policy, room service/diet, and visiting hours. Information on how to activate the Rapid Response Team has been discussed. Patient/Family are encouraged to report perceived risks to care and to ask questions if they do not understand what they are told or what they should do.
[2024-08-13 08:38] LABS: Basophils Absolute Auto 0.1 K/mm3 (0.0-0.1); Basophils Percent Auto 0.3 % (0.2-1.2); Eosinophils Percent Auto 0.1 % (0-4.4); Hematocrit 35.6 % (37.0-47.0); Hemoglobin 10.5 g/dL (12.0-15.0); Immature Granulocyte Absolute 0.55 K/mm3 (0.00-0.031); Immature Granulocyte Percent A 2.8 % (0-0.5); Lymphocytes Absolute Auto 0.86 K/mm3 (0.9-3.2); Lymphocytes Percent Auto 4.4 % (18.3-44.2); Mean Corpuscular HGB Conc 29.5 g/dl (32-36); Mean Corpuscular Hemoglobin 22.7 pg (26-34); Mean Corpuscular Volume 76.9 fl (80-100); Mean Platelet Volume 11.1 fl (7.4-10.4); Monocytes Absolute Auto 1.4 K/mm3 (0.1-0.6); Monocytes Percent Auto 7.1 % (2.6-8.5); Neutrophils Absolute Auto 16.9 K/mm3 (1.3-6.7); Neutrophils Percent Auto 85.3 % (45.5-73.1); Platelet Count Result 281 k/mm3 (150-375); Red Blood Count 4.63 M/mm3 (4.2-5.4); Red Cell Distribution Width 16.8 % (11.5-14.5); White Blood Count 19.8 K/mm3 (4.5-10.0)
--- NOTE | 2024-08-13 08:43 | P.CONGS_ITS ---
Assessment and Plan Assessment and plan (1) Appendicitis: Code(s): K37 - Unspecified appendicitis Status: Acute Assessment and Plan: patient presented to ED with 3 days of RLQ pain. WBC 19.8. CT consistent with appendicitis with extensive periappendiceal inflammatory faulkner and/or developing phlegmon. No abscess or free air. Plan for laparoscopic appendectomy today with Dr. Link. Pateint should remain NPO. Continue IV Zosyn. History of Present Illness Consult details Consult date: 08/13/24 Reason for consult: abdominal pain (RLQ pain - appendicitis) Narrative: Patient is a 44 y/o female who presented to the ED last night with RLQ abdominal pain x 3 days. Pain first started epigastric, but eventually localized to RLQ with associated nausea and vomiting on Friday. Patient presented to her PCP on Friday who did not believe her pain was consistent with appendicitis and suggested to wait to see if it abated. Pain became intolerable , which led to her presenting to ED. CT abd/pelvis demonstrated large appendicolith at base of appendix measuring 18 mm in diameter. Diffusely dilated appendix - 16 mm diameter. Extensive periappendiceal inflammatory change with small amount of fluid. Afebrile. WBC 22.4 in ED. Abdominal surgical history consists of two c- sections. Last BM was reportedly on Friday. No nausea or vomiting currently. Last ate yesterday. Pain is being managed with Dilaudid. Antibiotic coverage with Zosyn. WBC now down to 19.8. PMFSH Past Medical History Medical History COVID-19 Surgical History Surgical History H/O section Family History Family History Grandparent Carcinoma of colon Family history of malignant neoplasm of breast in first degree relative Family history of elevated blood lipids Family history of alcoholism Family history of malignant neoplasm Family history of malignant neoplasm of breast Mother Hypertension Sibling Hypertension Other Diabetes mellitus Social History Social History Smoking status: Never smoker Alcohol intake: current Drinks per week: 2 Substance use: never Substance use type: does not use Last use: last drink 3 weeks ago Do You Feel Safe in your Home?: Yes Lack of Transportation: No Lack of Food: Never True Current Housing: I Have Housing Concerned About Future Housing: No Difficulty Paying Gas/Electric Bills: No Difficulty Paying for Meds: No Currently Unemployed: No Education: Associate Degree Difficulty w/ Childcare or Family Care: No Living arrangements: with family Spiritual care concerns: No Meds Home Medications and Allergies Home Medications ?Medication ?Instructions ?Recorded ?Confirmed ?Type aspirin 81 mg tablet,delayed 81 mg PO DAILY 02/22/19 08/13/24 History release (Adult Low Dose Aspirin) cholecalciferol (vitamin D3) 125 10,000 unit PO DAILY 02/22/19 08/13/24 History mcg (5,000 unit) tablet cyanocobalamin (vitamin B-12) 1,000 mcg PO DAILY 02/22/19 08/13/24 History 1,000 mcg tablet rizatriptan 10 mg tablet 10 mg PO .COMPLEX 02/22/19 08/13/24 History metformin 500 mg tablet,extended 500 mg PO BID #180 tabs 01/26/24 08/13/24 Rx release 24 hr simvastatin 40 mg tablet See Rx Instructions .Route 08/10/24 08/13/24 Rx .COMPLEX #90 tabs norgestrel 0.3 mg-ethinyl 1 tablet PO DAILY 08/11/24 08/13/24 History estradiol 30 mcg tablet (Geoff (28)) omeprazole 40 mg capsule,delayed 80 mg (2 x 40 mg) PO DAILY #180 08/11/24 08/13/24 Rx release caps propranolol 80 mg capsule,24 80 mg PO DAILY 08/11/24 08/13/24 History hr,extended release sucralfate 1 gram tablet (Carafate) 1 g PO Q4H PRN abdominal pain #90 08/11/24 08/13/24 Rx tabs Allergies Allergy/AdvReac Type Severity Reaction Status Date / Time No Known Allergies Allergy Verified 08/13/24 05:30 Vital Signs Vital Signs - 24 hr 08/12/24 23:02 08/13/24 00:01 08/13/24 03:56 Temperature 98.8 F Pulse Rate 95 88 92 Respiratory Rate 20 16 17 Blood Pressure 142/78 H 116/68 151/86 H Pulse Oximetry 95 98 100 Oxygen Delivery Room Air 08/13/24 04:50 08/13/24 07:16 Temperature 97.7 F Pulse Rate 88 Respiratory Rate 18 Blood Pressure 115/58 L Pulse Oximetry 96 Oxygen Delivery Room Air Exam 2 Const: General: comfortable and no acute distress HENMT: Mouth: Yes moist mucous membranes Eyes: General: appearance normal, both eyes and all related structures Neck: Neck: supple Resp: Effort & Inspection: normal respiratory effort Cardio: Rate: regular rate GI: Inspection: non-distended GI Palp: Yes Soft to palpation, Yes Tenderness to palpation present (GI) (RLQ tender to palpation) and No Guarding due to palpation present (GI) : General: Yes bladder normal to palpation Skin: General skin exam: normal color and no rashes or lesions noted Neuro: Speech: normal speech Sensory Exam: normal sensation Extrem: General: normal to inspection Psych: Mental Status: mental status grossly normal Results Labs 08/12/24 23:15 08/12/24 23:15 Labs: Abnormal lab results 08/12/24 08/12/24 08/13/24 Range/Units 23:15 23:58 02:35 WBC 22.4 H (4.5-10.0) K/mm3 RBC 5.42 H (4.2-5.4) M/mm3 MCV 74.7 L (80-100) fl MCH 22.3 L (26-34) pg MCHC 29.9 L (32-36) g/dl RDW 16.8 H (11.5-14.5) % MPV 10.5 H (7.4-10.4) fl Immature Gran % (Auto) 1.1 H (0-0.5) % Neut % (Auto) 87.6 H (45.5-73.1) % Lymph % (Auto) 4.5 L (18.3-44.2) % [place] # (Auto) 1.5 H (0.1-0.6) K/mm3 Abs Immat Gran (auto) 0.25 H (0.00-0.031) K/mm3 Absolute Neuts (auto) 19.7 H (1.3-6.7) K/mm3 PT 16.2 H (11.1-14.7) Seconds Sodium 132 L (137-145) mmol/L Glucose 130 H (65-110) mg/dL AST 43 H (14-36) U/L C-Reactive Protein 24.2 H (<1.0) mg/dL Albumin 3.4 L (3.5-5.1) g/dL Urine Protein 3+ H (Negative) mg/dL Urine Ketones Trace H (Negative) mg/dL Ur Blood (Man) Trace-intact H (Negative) Urine Bilirubin 1+ H (Negative) Urine RBC 3-5 H (0-2) /hpf Urine Bacteria 3+ H /hpf Diabetes panel 08/12/24 Range/Units 23:15 Sodium 132 L (137-145) mmol/L Potassium 3.7 (3.4-5.0) mmol/L Chloride 98 (98-107) mmol/L Carbon Dioxide 26 (22-30) mmol/L BUN 7 (7-17) mg/dL Creatinine 0.90 (0.7-1.0) mg/dL Glucose 130 H (65-110) mg/dL Calcium 8.8 (8.4-10.2) mg/dL AST 43 H (14-36) U/L ALT 20 (6-35) U/L Alkaline Phosphatase 96 (38-126) U/L Total Protein 6.3 (6.3-8.2) g/dL Albumin 3.4 L (3.5-5.1) g/dL Calcium panel 08/12/24 Range/Units 23:15 Calcium 8.8 (8.4-10.2) mg/dL Albumin 3.4 L (3.5-5.1) g/dL Pituitary panel 08/12/24 Range/Units 23:15 Sodium 132 L (137-145) mmol/L Potassium 3.7 (3.4-5.0) mmol/L Chloride 98 (98-107) mmol/L Carbon Dioxide 26 (22-30) mmol/L BUN 7 (7-17) mg/dL Creatinine 0.90 (0.7-1.0) mg/dL Glucose 130 H (65-110) mg/dL Calcium 8.8 (8.4-10.2) mg/dL Adrenal panel 08/12/24 Range/Units 23:15 Sodium 132 L (137-145) mmol/L Potassium 3.7 (3.4-5.0) mmol/L Chloride 98 (98-107) mmol/L Carbon Dioxide 26 (22-30) mmol/L BUN 7 (7-17) mg/dL Creatinine 0.90 (0.7-1.0) mg/dL Glucose 130 H (65-110) mg/dL Calcium 8.8 (8.4-10.2) mg/dL Total Bilirubin 0.4 (0.2-1.3) mg/dL AST 43 H (14-36) U/L ALT 20 (6-35) U/L Alkaline Phosphatase 96 (38-126) U/L Total Protein 6.3 (6.3-8.2) g/dL Albumin 3.4 L (3.5-5.1) g/dL All other labs normal.
[2024-08-13 08:45] LABS: Anion Gap 6 mmol/L (4-12); Blood Urea Nitrogen 7 mg/dL (7-17); Calcium 7.9 mg/dL (8.4-10.2); Carbon Dioxide 25 mmol/L (22-30); Chloride 106 mmol/L (98-107); Estimated CRCL calculation 88 ml/min; Estimated Glomerular Filt Rate > 60; Glucose 130 mg/dL (65-110); Potassium 3.9 mmol/L (3.4-5.0); Sodium 137 mmol/L (137-145)
[2024-08-13] MEDS: HYDROmorphone HCL INJ (*CRX) 2 MG/ML VIAL 0.5 MG IV PUSH (08:46)
--- NOTE | 2024-08-13 09:06 | P.HP_ITS ---
H&P: HPI History of Present Illness Date/Time: 08/13/24 09:06 Chief Complaint: right lower quadrant abdominal pain Narrative: Patient is a 44 y/o female who presented to the ED last night with RLQ abdominal pain x 3 days. Pain first started epigastric, but eventually localized to RLQ with associated nausea and vomiting on Friday. Patient presented to her PCP on Friday who did not believe her pain was consistent with appendicitis and suggested to wait to see if it abated. Pain became intolerable , which led to her presenting to ED. CT abd/pelvis demonstrated large appendicolith at base of appendix measuring 18 mm in diameter. Diffusely dilated appendix - 16 mm diameter. Extensive periappendiceal inflammatory change with small amount of fluid. Afebrile. WBC 22.4 in ED. Abdominal surgical history consists of two c- sections. Last BM was reportedly on Friday. No nausea or vomiting currently. Last ate yesterday. Pain is being managed with Dilaudid. Antibiotic coverage with Zosyn. WBC now down to 19.8. [facility] Past Medical History Medical History COVID-19 Surgical History Surgical History H/O section Family History Family History Grandparent Carcinoma of colon Family history of malignant neoplasm of breast in first degree relative Family history of elevated blood lipids Family history of alcoholism Family history of malignant neoplasm Family history of malignant neoplasm of breast Mother Hypertension Sibling Hypertension Other Diabetes mellitus Social History Social History Smoking status: Never smoker Alcohol intake: current Drinks per week: 2 Substance use: never Substance use type: does not use Last use: last drink 3 weeks ago Do You Feel Safe in your Home?: Yes Lack of Transportation: No Lack of Food: Never True Current Housing: I Have Housing Concerned About Future Housing: No Difficulty Paying Gas/Electric Bills: No Difficulty Paying for Meds: No Currently Unemployed: No Education: Associate Degree Difficulty w/ Childcare or Family Care: No Living arrangements: with family Spiritual care concerns: No Meds Home Medications and Allergies Home Medications ?Medication ?Instructions ?Recorded ?Confirmed ?Type aspirin 81 mg tablet,delayed 81 mg PO DAILY 02/22/19 08/13/24 History release (Adult Low Dose Aspirin) cholecalciferol (vitamin D3) 125 10,000 unit PO DAILY 02/22/19 08/13/24 History mcg (5,000 unit) tablet cyanocobalamin (vitamin B-12) 1,000 mcg PO DAILY 02/22/19 08/13/24 History 1,000 mcg tablet rizatriptan 10 mg tablet 10 mg PO .COMPLEX 02/22/19 08/13/24 History metformin 500 mg tablet,extended 500 mg PO BID #180 tabs 01/26/24 08/13/24 Rx release 24 hr simvastatin 40 mg tablet See Rx Instructions .Route 08/10/24 08/13/24 Rx .COMPLEX #90 tabs norgestrel 0.3 mg-ethinyl 1 tablet PO DAILY 08/11/24 08/13/24 History estradiol 30 mcg tablet (Geoff (28)) omeprazole 40 mg capsule,delayed 80 mg (2 x 40 mg) PO DAILY #180 08/11/24 08/13/24 Rx release caps propranolol 80 mg capsule,24 80 mg PO DAILY 08/11/24 08/13/24 History hr,extended release sucralfate 1 gram tablet (Carafate) 1 g PO Q4H PRN abdominal pain #90 08/11/24 08/13/24 Rx tabs Allergies Allergy/AdvReac Type Severity Reaction Status Date / Time No Known Allergies Allergy Verified 08/13/24 05:30 Vital Signs Vital Signs - 24 hr 08/12/24 23:02 08/13/24 00:01 08/13/24 03:56 Temperature 98.8 F Pulse Rate 95 88 92 Respiratory Rate 20 16 17 Blood Pressure 142/78 H 116/68 151/86 H Pulse Oximetry 95 98 100 Oxygen Delivery Room Air 08/13/24 04:50 08/13/24 07:16 Temperature 97.7 F Pulse Rate 88 Respiratory Rate 18 Blood Pressure 115/58 L Pulse Oximetry 96 Oxygen Delivery Room Air Exam Const: General: comfortable and no acute distress HENMT: Mouth: Yes moist mucous membranes Eyes: General: appearance normal, both eyes and all related structures Neck: Neck: supple Resp: Effort & Inspection: normal respiratory effort Cardio: Rate: regular rate GI: GI Palp: Yes Soft to palpation, Yes Tenderness to palpation present (GI) (RLQ tender to palpation) and No Guarding due to palpation present (GI) : General: Yes bladder normal to palpation Skin: General skin exam: normal color and no rashes or lesions noted Neuro: Speech: normal speech Sensory Exam: normal sensation Extrem: General: normal to inspection Psych: Mental Status: mental status grossly normal H&P: Results Labs Labs: Short CBC 08/12/24 08/13/24 Range/Units 23:15 08:13 WBC 22.4 H 19.8 H (4.5-10.0) K/mm3 Hgb 12.1 10.5 L (12.0-15.0) g/dL Hct 40.5 35.6 L (37.0-47.0) % Plt Count 349 281 (150-375) k/mm3 BMP 08/12/24 08/13/24 23:15 08:13 Sodium 132 L 137 Potassium 3.7 3.9 Chloride 98 106 Carbon Dioxide 26 25 BUN 7 7 Creatinine 0.90 0.93 Glucose 130 H 130 H Calcium 8.8 7.9 L Cardiac Enzymes 08/12/24 Range/Units 23:15 Troponin I < 0.012 (0.000-0.034) ng/mL Liver Function 08/12/24 Range/Units 23:15 Total Bilirubin 0.4 (0.2-1.3) mg/dL AST 43 H (14-36) U/L ALT 20 (6-35) U/L Alkaline Phosphatase 96 (38-126) U/L Albumin 3.4 L (3.5-5.1) g/dL Urine 08/12/24 Range/Units 23:58 Urine Color Dark yellow (Yellow) Urine Appearance Sl cloudy (Clear) Urine pH 6.0 (5.0-9.0) Ur Specific [place] >= 1.030 (1.001-1.035) Urine Protein 3+ H (Negative) mg/dL Urine Glucose (UA) Negative (Negative) mg/dL Assessment and Plan Assessment and plan (1) Appendicitis: Code(s): K37 - Unspecified appendicitis Status: Acute Assessment and Plan: Patient presented to ED with 3 days of RLQ pain. WBC 19.8. CT demonstrated appendicitis with extensive periappendiceal inflammatory change and/or developing phlegmon. No abscess or free air. Plan for laparoscopic appendectomy with Dr. Link today. Continue IV Zosyn. Patient should remain NPO.
--- NOTE | 2024-08-13 10:08 | PC.NURSE ---
pt taken down to pre-op. report given to Anh MCBRIDE
--- NOTE | 2024-08-13 10:39 | P.PNAN_ITS ---
Anes - Initial Pre Proc Eval Procedure: Operation Date: 08/13/24 11:30 Proposed Procedures p Laparoscopic Appendectomy - Ronal Link MD Date/Time: 08/13/24 10:39 Surgeon: Ronal Link MD Pre Op Diagnosis: appendicitis Patient Data Age: 44 Gender: F Height: 1.68 m Weight: 119.6 kg Last Vital Signs Temp 36.5 C 08/13/24 07:16 Pulse 88 08/13/24 07:16 Resp 18 08/13/24 07:16 BP 115/58 L 08/13/24 07:16 Pulse Ox 96 08/13/24 07:16 O2 Del Method Room Air 08/13/24 09:00 Allergies Allergy/AdvReac Type Severity Reaction Status Date / Time No Known Allergies Allergy Verified 08/13/24 05:30 Home Medications ?Medication ?Instructions ?Recorded ?Confirmed ?Type aspirin 81 mg tablet,delayed 81 mg PO DAILY 02/22/19 08/13/24 History release (Adult Low Dose Aspirin) cholecalciferol (vitamin D3) 125 10,000 unit PO DAILY 02/22/19 08/13/24 History mcg (5,000 unit) tablet cyanocobalamin (vitamin B-12) 1,000 mcg PO DAILY 02/22/19 08/13/24 History 1,000 mcg tablet rizatriptan 10 mg tablet 10 mg PO .COMPLEX 02/22/19 08/13/24 History metformin 500 mg tablet,extended 500 mg PO BID #180 tabs 01/26/24 08/13/24 Rx release 24 hr simvastatin 40 mg tablet See Rx Instructions .Route 08/10/24 08/13/24 Rx .COMPLEX #90 tabs norgestrel 0.3 mg-ethinyl 1 tablet PO DAILY 08/11/24 08/13/24 History estradiol 30 mcg tablet (Geoff (28)) omeprazole 40 mg capsule,delayed 80 mg (2 x 40 mg) PO DAILY #180 08/11/24 08/13/24 Rx release caps propranolol 80 mg capsule,24 80 mg PO DAILY 08/11/24 08/13/24 History hr,extended release sucralfate 1 gram tablet (Carafate) 1 g PO Q4H PRN abdominal pain #90 08/11/24 08/13/24 Rx tabs Laboratory Tests 06/02/2408/12/24 08/13/24 23:15 23:58 00:00 WBC 22.4 H K/mm3 (4.5-10.0) RBC 5.42 H M/mm3 (4.2-5.4) Hgb 12.1 g/dL (12.0-15.0) Hct 40.5 % (37.0-47.0) MCV 74.7 L fl (80-100) MCH 22.3 L pg (26-34) MCHC 29.9 L g/dl (32-36) RDW 16.8 H % (11.5-14.5) Plt Count 349 k/mm3 (150-375) MPV 10.5 H fl (7.4-10.4) Immature Gran % (Auto) 1.1 H % (0-0.5) Neut % (Auto) 87.6 H % (45.5-73.1) Lymph % (Auto) 4.5 L % (18.3-44.2) [place] % (Auto) 6.5 % (2.6-8.5) Eos % (Auto) 0.0 % (0-4.4) Baso % (Auto) 0.3 % (0.2-1.2) Lymph # (Auto) 1.01 K/mm3 (0.9-3.2) [place] # (Auto) 1.5 H K/mm3 (0.1-0.6) Eos # (Auto) 0.0 K/mm3 (0-0.3) Baso # (Auto) 0.1 K/mm3 (0.0-0.1) Abs Immat Gran (auto) 0.25 H K/mm3 (0.00-0.031) Absolute Neuts (auto) 19.7 H K/mm3 (1.3-6.7) Absolute Nucleated RBC 0.000 K/mm3 (0.0-0.012) Band Neutrophils % 0 % (0-6) Nucleated RBC % 0.0 % (0.0-0.2) Platelet Estimate Adequate (Adequate) Hypochromasia 1+ Anisocytosis 1+ Ovalocytes 1+ Schistocytes None seen PT INR APTT Sodium 132 L mmol/L (137-145) Potassium 3.7 mmol/L (3.4-5.0) Chloride 98 mmol/L (98-107) Carbon Dioxide 26 mmol/L (22-30) Anion Gap 8 mmol/L (4-12) BUN 7 mg/dL (7-17) Creatinine 0.90 mg/dL (0.7-1.0) Estim Creat Clear Calc 90 ml/min Estimated GFR > 60 (59 - ) Glucose 130 H mg/dL (65-110) Lactic Acid 1.0 mmol/L (0.7-2.0) Calcium 8.8 mg/dL (8.4-10.2) Total Bilirubin 0.4 mg/dL (0.2-1.3) AST 43 H U/L (14-36) ALT 20 U/L (6-35) Alkaline Phosphatase 96 U/L (38-126) Troponin I < 0.012 ng/mL (0.000-0.034) C-Reactive Protein Total Protein 6.3 g/dL (6.3-8.2) Albumin 3.4 L g/dL (3.5-5.1) Lipase 83 U/L (23-300) Urine Color Dark yellow (Yellow) Urine Appearance Sl cloudy (Clear) Urine pH 6.0 (5.0-9.0) Ur Specific [place] >= 1.030 (1.001-1.035) Urine Protein 3+ H mg/dL (Negative) Urine Glucose (UA) Negative mg/dL (Negative) Urine Ketones Trace H mg/dL (Negative) Ur Blood (Man) Trace-intact H (Negative) Urine Nitrate Negative (Negative) Urine Bilirubin 1+ H (Negative) Urine Urobilinogen 0.2 mg/dL (<2.0) Add Ur Microanalysis Reviewed Leukocyte Esterase Rfl Negative KAILA/UL (Negative) Urine RBC 3-5 H /hpf (0-2) Urine WBC 0-5 /hpf (0-3) Ur Squamous Epith Cells Moderate /hpf (Few) Urine Bacteria 3+ H /hpf Urine Casts 3-5 Hyaline Casts Present /lpf (None) Urine Mucus Present /lpf POC Urine HCG, Qual Negative (Negative) Blood Type Antibody Screen 08/13/24 08/13/24 02:35 08:13 WBC 19.8 H K/mm3 (4.5-10.0) RBC 4.63 M/mm3 (4.2-5.4) Hgb 10.5 L g/dL (12.0-15.0) Hct 35.6 L % (37.0-47.0) MCV 76.9 L fl (80-100) MCH 22.7 L pg (26-34) MCHC 29.5 L g/dl (32-36) RDW 16.8 H % (11.5-14.5) Plt Count 281 k/mm3 (150-375) MPV 11.1 H fl (7.4-10.4) Immature Gran % (Auto) 2.8 H % (0-0.5) Neut % (Auto) 85.3 H % (45.5-73.1) Lymph % (Auto) 4.4 L % (18.3-44.2) [place] % (Auto) 7.1 % (2.6-8.5) Eos % (Auto) 0.1 % (0-4.4) Baso % (Auto) 0.3 % (0.2-1.2) Lymph # (Auto) 0.86 L K/mm3 (0.9-3.2) [place] # (Auto) 1.4 H K/mm3 (0.1-0.6) Eos # (Auto) 0.0 K/mm3 (0-0.3) Baso # (Auto) 0.1 K/mm3 (0.0-0.1) Abs Immat Gran (auto) 0.55 H K/mm3 (0.00-0.031) Absolute Neuts (auto) 16.9 H K/mm3 (1.3-6.7) Absolute Nucleated RBC 0.000 K/mm3 (0.0-0.012) Band Neutrophils % Nucleated RBC % 0.0 % (0.0-0.2) Platelet Estimate Hypochromasia Anisocytosis Ovalocytes Schistocytes PT 16.2 H Seconds (11.1-14.7) INR 1.3 APTT 27.8 Seconds (22.3-36.8) Sodium 137 mmol/L (137-145) Potassium 3.9 mmol/L (3.4-5.0) Chloride 106 mmol/L (98-107) Carbon Dioxide 25 mmol/L (22-30) Anion Gap 6 mmol/L (4-12) BUN 7 mg/dL (7-17) Creatinine 0.93 mg/dL (0.7-1.0) Estim Creat Clear Calc 88 ml/min Estimated GFR > 60 (59 - ) Glucose 130 H mg/dL (65-110) Lactic Acid 1.0 mmol/L (0.7-2.0) Calcium 7.9 L mg/dL (8.4-10.2) Total Bilirubin AST ALT Alkaline Phosphatase Troponin I C-Reactive Protein 24.2 H mg/dL (<1.0) Total Protein Albumin Lipase Urine Color Urine Appearance Urine pH Ur Specific [place] Urine Protein Urine Glucose (UA) Urine Ketones Ur Blood (Man) Urine Nitrate Urine Bilirubin Urine Urobilinogen Add Ur Microanalysis Leukocyte Esterase Rfl Urine RBC Urine WBC Ur Squamous Epith Cells Urine Bacteria Urine Casts Hyaline Casts Urine Mucus POC Urine HCG, Qual Blood Type A Positive Antibody Screen Negative Patient hx anesthesia problems: post op nausea/vomiting Family hx anesthesia problems: none Results Review: All pre-operative results and documents have been reviewed as part of the pre- operative evaluation. [facility] Past Medical History Medical History COVID-19 Surgical History Surgical History H/O section Family History Family History Grandparent Carcinoma of colon Family history of malignant neoplasm of breast in first degree relative Family history of elevated blood lipids Family history of alcoholism Family history of malignant neoplasm Family history of malignant neoplasm of breast Mother Hypertension Sibling Hypertension Other Diabetes mellitus Social History Social History Smoking status: Never smoker Alcohol intake: current Drinks per week: 2 Substance use: never Substance use type: does not use Last use: last drink 3 weeks ago Do You Feel Safe in your Home?: Yes Lack of Transportation: No Lack of Food: Never True Current Housing: I Have Housing Concerned About Future Housing: No Difficulty Paying Gas/Electric Bills: No Difficulty Paying for Meds: No Currently Unemployed: No Education: Associate Degree Difficulty w/ Childcare or Family Care: No Living arrangements: with family Spiritual care concerns: No Anes - Eval Final PreProcedure Day of Procedure 08/13/24 10:39 Patient weight: morbidly obese Heart: regular rate and rhythm Lungs: clear to auscultation Airway: Mallampati scale class III Neurological: alert and oriented Last oral intake: >/= 8 hours ASA classification: III Emergent: no Anesthetic plan: proceed Anesthesia type and monitoring: general ETT and standard monitoring Results Review: All pre-operative results and documents have been reviewed as part of the pre- operative evaluation. Informed Consent: The patient's anesthetic plan and its attendant risks and benefits were discussed with the patient/family/POA. Questions were solicited and answers provided to the satisfaction of the patient/family/POA.
--- NOTE | 2024-08-13 10:39 | WPDHPUPDATE1 ---
History and Physical Update Update Date/Time: 08/13/24 10:39 History and Physical has been reviewed, including an updated exam of the patient. There are NO changes in the patient's condition. Risks, benefits, and alternatives have been discussed and questions answered. Patient agrees to proceed with procedure.
[2024-08-13] MEDS: SCOPOLAMINE 1 MG PATCH 1 PATCH TRANSDERM (10:46)
[2024-08-13] MEDS: LACTATED RINGERS 1,000 ML 30 ML IV CONT ×2 (10:47→12:32)
[2024-08-13] MEDS: BUPIVACAINE/EPINEPHRINE 0.5% 50 ML VIAL 30 ML INFILTRATE (11:30)
--- NOTE | 2024-08-13 12:10 | S_PTH ---
PATIENT: Alaina Alcocer LOC: [id number] #:[id number] AGE/SX: 44/F ROOM: 320 RE08/13/[address]: Kerline Styles APRN : 1980 BED: 01 DIS: 08/16/2024 SPEC #: [id number] RECD: 08/13/24 13:16 STATUS: DARELL WHITE #: [id number] RIMMA: 08/13/24 12:[address]: Ronal Link DEPT: [facility] Surgical RECD BY: Vanessa Fernandez ENTERED: 08/13/24 13:16 SP TYPE: Surgical OTHR DR: Dallas Milton MD Tissues: A - Appendix Procedures: Hematoxylin and Eosin Stain Gross and Microscopic Level 3
--- NOTE | 2024-08-13 12:53 | P.OP_ITS ---
Procedure Note - Detailed Date of Procedure 08/13/24 Pre-op Diagnosis appendicitis Post-op Diagnosis Other (Ruptured appendicitis with abscess) Procedure Performed Laparoscopic appendectomy for ruptured appendicitis, drainage abdominal abscess Surgeon Ronal Link MD Blanket Folder Sole Pardo PA-C Anesthesia General and Local Indications Patient came to the emergency room late last night with a 5 day history of abdominal pain that started in the upper abdomen and moved to the right lower quadrant. The pain had gotten more severe to where she decided to go to the emergency room. In the emergency room she was [place] [address] and exquisite right lower quadrant tenderness. CT scan of the abdomen and pelvis showed acute appendicitis with an appendix of 1.6 cm diameter. She is suspected to have ruptured appendicitis with abscess and is taken now to the operating room for appendectomy and definitive treatment. Findings Patient did in fact have ruptured appendicitis and an abscess. It was very adherent to the right posterolateral abdominal wall. The perforation in the appendix was just above its origin from the cecum. Small stool pellets had leaked from the appendiceal orifice. The abscess was walled off by the sidewall, cecum, ligament of Trebes. Description of Procedure Patient was taken to surgery and induced into general anesthesia. The abdomen is prepped and draped. Initial trocar was in the left subcostal position. This was then applied Medical optical trocar and we were able to gain access to the peritoneal cavity easily. Insufflation was carried out and then under direct visualization a mid abdominal 5 mm port was placed and then a 10 11 the lower abdominal port was placed in the midline. Later in the surgery, a right upper quadrant port was placed which was another 5 mm port. The patient was placed in Trendelenburg with the right-side elevated. The area of the appendix was easily found as it was walled off on the right lateral abdominal wall. Gently removing some of the bowel loops to this area was greeted by a mahajan of greenish purulent fluid. This was the abscess that had formed. The purulent fluid was suctioned away. Some small stool balls were also noted and these were removed. We then continued the dissection trying to identify the various structures. The cecum and ascending colon were quite adherent to the lateral abdominal wall. This is when the extra port was placed and we moved the camera to this right upper quadrant port. The left subcostal port was then used for a blunt retractor. I exposed and mobilized the lateral peritoneal attachments to the cecum and about half of the ascending colon. I continued this dissection using blunt and sharp dissection. Eventually I was able to roll most of the cecum towards the midline. This helped greatly in seeing and mobilizing the appendix. I was then able to place gentle anterior traction on the appendix and dissect in the area of the appendiceal mesentery. Blood vessels in the mesentery were cauterized and divided. Eventually I was able to mobilize the appendix entirely. The appendix was only attached to its base by some mucosa. The complete muscular and serosal aspect of the appendix had already broken off. I dice did the appendiceal stump so that there was at least a few mm of appendiceal stump to ligate. I then used a Vicryl endoloop and ligated the base of the appendix at its junction with the cecum. I then divided the mucosal attachments of the appendix to it stump and then cauterized the mucosa of the appendiceal stump. The appendix was then placed in an Endo-Catch bag. It was retrieved through the 10 11 lower abdominal port. I then replaced the 10 11 port and we irrigated and suctioned the right lower quadrant and areas of dissection. I did find 1 or 2 more small fecaliths which I removed from the abdominal cavity. I searched for more of these but was not able to find anymore. We irrigated and suctioned thoroughly. There was no sign of bleeding or any purulent fluid. A 19 Dandre drain was then threaded through the right upper quadrant 5 mm port site. It was thus position area of the cecum and the abscess. The drain was sutured securely to the skin with 2-0 silk. We then evacuated CO2 and removed the trocar sleeves. Skin wounds were closed with subcuticular 4-0 Monocryl skin suture. The wounds were dressed with Exofin surgical adhesive. The drain was placed to bulb suction. A gauze drain dressing was placed at the exit site of the drain. Patient was then awakened and taken to recovery in good condition. Sponge and needle counts were correct x2. Estimated Blood Loss -30 Urine Output 0 Drains Yes (19 Fr Dandre) Packing No Pathology Yes (appendix) Complications None Condition Stable Disposition PACU [facility] Billing Surgery - Charge Forward: Surgery Billing (Laparoscopic appendectomy for ruptured appendicitis, laparoscopic drainage intra-abdominal abscess)
[2024-08-13] MEDS: diphenhydrAMINE HCl INJ 50 MG/ML VIAL 12.5 MG IV PUSH ×2 (13:18→13:26)
[2024-08-13] MEDS: fentaNYL CITRATE INJ (*CRX) 100 MCG/2 ML VIAL 25 MCG IV PUSH ×3 (13:40→13:48)
[2024-08-13 14:26] LABS: Glucose Point of Care 142 mg/dl (65-105)
--- NOTE | 2024-08-13 15:00 | PC.NURSE ---
pt returned to room from surgery
[2024-08-13] MEDS: MORPHINE SULFATE (*CRX) 4 MG/ML INJ IV PUSH ×2 (15:32→19:54)
[2024-08-13] MEDS: LACTATED RINGERS 1,000 ML 100 ML IV CONT (15:39)
[2024-08-13] MEDS: oxyCODONE/ACETAMINOPHEN (*CRX) 5-325 MG TABLET 1 TABLET PO (18:01)
[2024-08-13] MEDS: metFORMIN HCL XR 500 MG TAB.SR.24H PO (18:01)
--- NOTE | 2024-08-13 18:09 | PC.NURSE ---
Requested patient to have bring home propranolol and control, as they are both non-form here. patient to have bring in AM
[2024-08-13] MEDS: SUCRALFATE 1 GM TABLET PO (19:54)
--- NOTE | 2024-08-13 21:53 | PHAR ---
VERIFIED Norgestrel-Ethinyl Estradiol [Geoff (28)] 0.3-0.03 mg-mcg tablet TAKE 1 TABLET BY MOUTH ONCE DAILY & Propranolol 80 mg capsule,extended release 24 hr TAKE 1 TABLET BY MOUTH ONCE DAILY. RETURNED TO [address] [place] [address] FOR INPATIENT USE.
[2024-08-14] VITALS (7 sets, daily range): BP systolic 109–129; BP diastolic 60–74; PULSE 83–99; RESP 18–20; TEMP 36.4–37.5; O2SAT 93–99
[2024-08-14] MEDS: PIPERACILLN/TAZ 3.375GM/NS50ML 3.375 GM/50 ML BAG IVPB ×4 (02:24→20:39)
[2024-08-14] MEDS: MORPHINE SULFATE (*CRX) 4 MG/ML INJ IV PUSH (03:00)
[2024-08-14] MEDS: LACTATED RINGERS 1,000 ML 100 ML IV CONT ×2 (05:31→16:48)
[2024-08-14] MEDS: oxyCODONE/ACETAMINOPHEN (*CRX) 5-325 MG TABLET 1 TABLET PO ×3 (05:40→17:42)
--- NOTE | 2024-08-14 06:20 | PM.PNGS ---
Progress Note: A&P Assessment and Plan (1) Acute appendicitis with perforation, localized peritonitis, abscess, and gangrene: Code(s): K35.33 - Acute appendicitis with perforation, localized peritonitis, and gangrene, with abscess Status: Acute Assessment and Plan: No nausea and pain fairly well controlled. Advanced to full liquids and continue IV antibiotics. Subjective Subjective Date/Time Seen: 08/14/24 06:20 Post Op day: 1 Patient reports: no new complaints, still having pain, voiding w/o difficulty, no bowel movement and afebrile Exam Const: General: comfortable, alert and awake GI: Inspection: incision (Dry and healing), obesity and other (Serous fluid in WENDY drain) GI Palp: Yes Soft to palpation and Yes Tenderness to palpation present (GI) Objective Data Vital Signs Vital Signs: Vital Signs - 24 hr 08/13/24 07:16 08/13/24 09:00 08/13/24 10:15 Temperature 36.5 C 36.4 C Pulse Rate 88 91 Respiratory Rate 18 14 Blood Pressure 115/58 L 110/62 Pulse Oximetry 96 95 Oxygen Delivery Room Air Room Air Oxygen Flow Rate 08/13/24 12:32 08/13/24 12:37 08/13/24 12:45 Temperature 37.1 C Pulse Rate 83 85 81 Respiratory Rate 17 18 18 Blood Pressure 101/45 L 107/53 L 123/63 Pulse Oximetry 96 94 96 Oxygen Delivery Simple Face Mask Simple Face Mask Simple Face Mask Oxygen Flow Rate 10 10 10 08/13/24 13:00 08/13/24 13:15 08/13/24 13:25 Temperature Pulse Rate 82 82 80 Respiratory Rate 22 H 20 20 Blood Pressure 104/58 L 131/68 133/74 Pulse Oximetry 100 94 100 Oxygen Delivery Simple Face Mask Nasal Cannula Nasal Cannula Oxygen Flow Rate 10 2 2 08/13/24 13:40 08/13/24 13:55 08/13/24 14:10 Temperature Pulse Rate 81 80 82 Respiratory Rate 22 H 17 22 H Blood Pressure 130/76 130/74 137/72 Pulse Oximetry 98 97 100 Oxygen Delivery Nasal Cannula Nasal Cannula Nasal Cannula Oxygen Flow Rate 2 2 2 08/13/24 14:25 08/13/24 14:40 08/13/24 14:55 Temperature 36.6 C 36.4 C L 36.4 C L Pulse Rate 86 85 87 Respiratory Rate 20 16 16 Blood Pressure 132/76 132/78 136/82 Pulse Oximetry 100 94 96 Oxygen Delivery Nasal Cannula Oxygen Flow Rate 2 08/13/24 15:26 08/13/24 16:26 08/13/24 18:05 Temperature 36.7 C 37.3 C Pulse Rate 89 95 Respiratory Rate 18 16 Blood Pressure 146/75 H 148/72 H Pulse Oximetry 97 97 98 Oxygen Delivery Room Air Oxygen Flow Rate 08/13/24 18:38 08/13/24 20:00 08/13/24 20:12 Temperature 36.6 C Pulse Rate 104 H Respiratory Rate 28 H Blood Pressure 128/70 Pulse Oximetry 95 91 Oxygen Delivery Room Air Room Air Oxygen Flow Rate 08/14/24 00:12 08/14/24 04:12 Temperature 36.5 C 37.0 C Pulse Rate 93 99 Respiratory Rate 20 18 Blood Pressure 114/74 129/63 Pulse Oximetry 96 93 Oxygen Delivery Oxygen Flow Rate Intake/Output Intake/Output: Intake & Output 08/11/24 08/12/24 08/13/24 08/14/24 23:59 23:59 23:59 23:59 Intake Total 4905 965 Output Total 60 20 Balance 4845 945 Meds/Results Medications: Active Medications Generic Name Dose Route Start Last Admin Trade Name Freq PRN Reason Stop Dose Admin Acetaminophen 500 mg 08/13/24 14:27 Acetaminophen 500 Mg Tablet PO Q6H PRN Pain Rated 1-3 Aspirin 81 mg 08/14/24 09:00 Aspirin 81 Mg Enteric Tablet PO DAILY [facility] Cyanocobalamin 1,000 mcg 08/14/24 09:00 Cyanocobalamin 1,000 Mcg Tablet PO DAILY [facility] Enoxaparin Sodium 40 mg 08/14/24 09:00 Enoxaparin 40 Mg/0.4 Ml Syringe SUB-Q DAILY [facility] Piperacillin/Tazobactam/Dextrose 3.375 gm in 50 mls @ 100 mls/hr 08/13/24 08:00 08/14/24 02:54 Zosyn 3.375 Gm/Ns 50 Ml IVPB Infused Q6H TRISTAN Infusion Lactated Ringer's 1,000 mls @ 100 mls/hr 08/13/24 14:27 08/14/24 05:31 Lr - Lactated Ringers Iv IV CONT 100 mls/hr .Q10H TRISTAN Administration Ibuprofen 800 mg in 200 mls @ 400 mls/hr 08/13/24 14:27 Caldolor 800 Mg/200 Ml IVPB Q6H PRN Breakthrough Pain Rated 1-3 or NPO Metformin HCl 500 mg 08/13/24 17:00 08/13/24 18:01 Metformin Hcl Xr 500 Mg Tab.Sr.24h PO 500 mg BID TRISTAN Administration Morphine Sulfate 2 mg 08/13/24 14:27 Morphine Sulfate (*Crx) 2 Mg/Ml Inj IV PUSH Q2H PRN Breakthrough Pain Rated 4-6 or NPO Morphine Sulfate 4 mg 08/13/24 14:27 08/14/24 03:00 Morphine Sulfate (*Crx) 4 Mg/Ml Inj IV PUSH 4 mg Q2H PRN Administration Breakthrough Pain Rated 7-10 or NPO Naloxone HCl 0.1 mg 08/13/24 14:27 Naloxone Hcl 0.4 Mg/Ml Vial IV PUSH Q2M PRN Opiate Reversal Home Med (Norgestrel 1 tablet 08/14/24 09:00 -Ethinyl Estradiol [ PO 09/13/24 08:59 Geoff (28)] 0.3-0 DAILY TRISTAN .03 Mg-Mcg Tablet) Home Med ( 80 mg 08/14/24 09:00 Propranolol 80 Mg PO 09/13/24 08:59 Capsule,Extended DAILY [facility] Release 24 Hr) Ondansetron HCl 4 mg 08/13/24 14:27 Ondansetron Inj 4 Mg/2 Ml Vial IV PUSH Q4H PRN Nausea And Vomiting Oxycodone/Acetaminophen 1 tablet 08/13/24 14:27 08/14/24 05:40 Oxycodone/Acetaminophen (*Crx) 5-325 Mg Tablet PO 1 tablet Q4H PRN Administration Pain Rated 4-6 Pantoprazole Sodium 40 mg 08/14/24 09:00 Pantoprazole 40 Mg Tablet PO Q12HR [facility] Rizatriptan Benzoate 10 mg 08/13/24 14:27 Rizatriptan Benzoate 10 Mg Odt PO PRN PRN Migraine Headache Simvastatin 40 mg 08/14/24 09:00 Simvastatin 20 Mg Tablet BY MOUTH DAILY [facility] Sucralfate 1 gm 08/13/24 14:27 08/13/24 19:54 Sucralfate 1 Gm Tablet PO 1 gm Q4H PRN Administration abdominal pain Vitamin D 250 mcg 08/14/24 09:00 Cholecalciferol (Vitamin D3) 125 Mcg (5,000 Units) Tablet PO DAILY [facility] Radiology Results: ITS Impressions Abdomen/Pelvis CT 08/13/24 05:15 Impression: Acute appendicitis with extensive periappendiceal inflammatory change and/or developing phlegmon. No abscess or free air. Labs Labs: Laboratory Results - last 24 hr 08/13/24 08/13/24 08:13 14:24 WBC 19.8 H RBC 4.63 Hgb 10.5 L Hct 35.6 L MCV 76.9 L MCH 22.7 L MCHC 29.5 L RDW 16.8 H Plt Count 281 MPV 11.1 H Immature Gran % (Auto) 2.8 H Neut % (Auto) 85.3 H Lymph % (Auto) 4.4 L [place] % (Auto) 7.1 Eos % (Auto) 0.1 Baso % (Auto) 0.3 Lymph # (Auto) 0.86 L [place] # (Auto) 1.4 H Eos # (Auto) 0.0 Baso # (Auto) 0.1 Abs Immat Gran (auto) 0.55 H Absolute Neuts (auto) 16.9 H Absolute Nucleated RBC 0.000 Nucleated RBC % 0.0 Sodium 137 Potassium 3.9 Chloride 106 Carbon Dioxide 25 Anion Gap 6 BUN 7 Creatinine 0.93 Estim Creat Clear Calc 88 Estimated GFR > 60 Glucose 130 H POC Capillary Glucose 142 H Calcium 7.9 L Blood Type A Positive Antibody Screen Negative
[2024-08-14 07:02] LABS: Hemoglobin 9.8 g/dL (12.0-15.0); Mean Corpuscular HGB Conc 28.8 g/dl (32-36); Mean Corpuscular Hemoglobin 22.3 pg (26-34); Mean Corpuscular Volume 77.3 fl (80-100); Mean Platelet Volume 10.4 fl (7.4-10.4); Platelet Count Result 302 k/mm3 (150-375); Red Cell Distribution Width 17.1 % (11.5-14.5); White Blood Count 8.9 K/mm3 (4.5-10.0)
[2024-08-14 07:13] LABS: Anion Gap 5 mmol/L (4-12); Blood Urea Nitrogen 10 mg/dL (7-17); Calcium 8.5 mg/dL (8.4-10.2); Carbon Dioxide 27 mmol/L (22-30); Chloride 103 mmol/L (98-107); Estimated CRCL calculation 75 ml/min; Estimated Glomerular Filt Rate 53; Glucose 131 mg/dL (65-110); Potassium 3.9 mmol/L (3.4-5.0); Sodium 135 mmol/L (137-145)
[2024-08-14] MEDS: ASPIRIN 81 MG ENTERIC TABLET PO (08:01)
[2024-08-14] MEDS: CHOLECALCIFEROL (VITAMIN D3) 125 MCG (5,000 UNITS) TABLET 250 MCG PO (08:01)
[2024-08-14] MEDS: CYANOCOBALAMIN 1,000 MCG TABLET 1000 MCG PO (08:01)
[2024-08-14] MEDS: SIMVASTATIN 20 MG TABLET 40 MG BY MOUTH (08:02)
[2024-08-14] MEDS: ENOXAPARIN 40 MG/0.4 ML SYRINGE SUB-Q (08:02)
[2024-08-14] MEDS: metFORMIN HCL XR 500 MG TAB.SR.24H PO ×2 (08:02→16:45)
[2024-08-14] MEDS: PANTOPRAZOLE 40 MG TABLET PO ×2 (08:02→20:39)
[2024-08-14] MEDS: IBUPROFEN IV 800 MG/200 ML 800 MG/200 ML BAG 400 MG IVPB (11:48)
[2024-08-14] MEDS: IBUPROFEN IV 800 MG/200 ML 800 MG/200 ML BAG 200 MG IVPB (19:23)
[2024-08-14] MEDS: NORGESTREL ETHINYL ESTRADIOL PO (20:40)
[2024-08-14] MEDS: [UNRECOGNIZED DRUG - OTHER] PO (20:40)
[2024-08-14] MEDS: [UNRECOGNIZED DRUG - OTHER] PO (20:40)
[2024-08-14] MEDS: PROPRANOLOL 80 MG PO (20:40)
[2024-08-15] MEDS: PIPERACILLN/TAZ 3.375GM/NS50ML 3.375 GM/50 ML BAG IVPB ×4 (02:04→20:58)
[2024-08-15] MEDS: oxyCODONE/ACETAMINOPHEN (*CRX) 5-325 MG TABLET 1 TABLET PO ×4 (02:06→18:09)
[2024-08-15] MEDS: ONDANSETRON INJ 4 MG/2 ML VIAL IV PUSH ×3 (02:07→20:58)
[2024-08-15] MEDS: LACTATED RINGERS 1,000 ML 100 ML IV CONT ×2 (03:00→15:24)
[2024-08-15 05:05] VITALS: BP 128/80; PULSE 84; RESP 18; TEMP 36.4; O2SAT 96
--- NOTE | 2024-08-15 06:30 | PC.NURSE ---
On 08/15/24, the graduate nurse, Margaret Castaneda, provided care and completed [facility] documentation on this patient. I have reviewed the student's documentation and agree with the findings.
[2024-08-15 07:17] LABS: Mean Corpuscular Hemoglobin 22.3 pg (26-34); Mean Corpuscular Volume 76.9 fl (80-100); Mean Platelet Volume 10.9 fl (7.4-10.4); Platelet Count Result 292 k/mm3 (150-375); Red Blood Count 4.03 M/mm3 (4.2-5.4); White Blood Count 9.6 K/mm3 (4.5-10.0)
[2024-08-15 08:05] LABS: Glucose 111 mg/dL (65-110)
[2024-08-15 08:16] LABS: Anion Gap 7 mmol/L (4-12); Blood Urea Nitrogen 10 mg/dL (7-17); Calcium 8.6 mg/dL (8.4-10.2); Carbon Dioxide 26 mmol/L (22-30); Chloride 101 mmol/L (98-107); Estimated CRCL calculation 80 ml/min; Estimated Glomerular Filt Rate 57; Potassium 3.9 mmol/L (3.4-5.0); Sodium 134 mmol/L (137-145)
[2024-08-15] MEDS: metFORMIN HCL XR 500 MG TAB.SR.24H PO ×2 (08:46→18:08)
[2024-08-15] MEDS: PANTOPRAZOLE 40 MG TABLET PO ×2 (08:47→20:58)
[2024-08-15] MEDS: ENOXAPARIN 40 MG/0.4 ML SYRINGE SUB-Q (08:47)
[2024-08-15] MEDS: CHOLECALCIFEROL (VITAMIN D3) 125 MCG (5,000 UNITS) TABLET 250 MCG PO (08:47)
[2024-08-15] MEDS: ASPIRIN 81 MG ENTERIC TABLET PO (08:47)
[2024-08-15] MEDS: CYANOCOBALAMIN 1,000 MCG TABLET 1000 MCG PO (08:47)
[2024-08-15] MEDS: SIMVASTATIN 20 MG TABLET 40 MG BY MOUTH (08:47)
[2024-08-15 08:51] LABS: CRP 35.4 mg/dL (<1.0)
--- NOTE | 2024-08-15 10:08 | PM.PNGS ---
Progress Note: A&P Assessment and Plan (1) Acute appendicitis with perforation, localized peritonitis, abscess, and gangrene: Code(s): K35.33 - Acute appendicitis with perforation, localized peritonitis, and gangrene, with abscess Status: Acute Assessment and Plan: Having pain right side of abdomen. Probably a combination of the drain site as well as postsurgical pain. She has been taking some Zofran intermittently from not nausea but the nausea is mild. She passed some flatus yesterday but no bowel movement. No purulent fluid from WENDY drain. Encouraged ambulation and being cautious with oral intake. Continue full liquids. CRP quite elevated today, will recheck again tomorrow. Subjective Subjective Date/Time Seen: 08/15/24 10:08 Post Op day: 2 Patient reports: still having pain (Right side of abdomen), voiding w/o difficulty, flatus, no bowel movement and afebrile Exam Const: General: cooperative, comfortable, alert, awake and obese Orientation/consciousness: No confusion GI: Inspection: obesity and other (WENDY serous fluid) GI Palp: Yes Soft to palpation, Yes Tenderness to palpation present (GI) (Right side of abdomen, mostly drain site), No Guarding due to palpation present (GI), No Rigid due to palpation, No Hernia present and No Palpable mass present Objective Data Vital Signs Vital Signs: Vital Signs - 24 hr 08/14/24 12:12 08/14/24 16:12 08/14/24 20:00 Temperature 36.4 C 37.2 C Pulse Rate 94 83 Respiratory Rate 18 18 Blood Pressure 114/69 109/61 Pulse Oximetry 99 97 Oxygen Delivery Room Air 08/14/24 20:25 08/15/24 05:05 08/15/24 08:47 Temperature 37.5 C 36.4 C Pulse Rate 97 84 Respiratory Rate 18 18 Blood Pressure 111/63 128/80 Pulse Oximetry 93 96 Oxygen Delivery Room Air Intake/Output Intake/Output: Intake & Output 08/12/24 08/13/24 08/14/24 08/15/24 23:59 23:59 23:59 23:59 Intake Total 4905 4365 1790 Output Total 60 30 10 Balance 4845 4335 1780 Meds/Results Medications: Active Medications Generic Name Dose Route Start Last Admin Trade Name Freq PRN Reason Stop Dose Admin Acetaminophen 500 mg 08/13/24 14:27 Acetaminophen 500 Mg Tablet PO Q6H PRN Pain Rated 1-3 Aspirin 81 mg 08/14/24 09:00 08/15/24 08:47 Aspirin 81 Mg Enteric Tablet PO 81 mg DAILY [facility] Administration Cyanocobalamin 1,000 mcg 08/14/24 09:00 08/15/24 08:47 Cyanocobalamin 1,000 Mcg Tablet PO 1,000 mcg DAILY [facility] Administration Enoxaparin Sodium 40 mg 08/14/24 09:00 08/15/24 08:47 Enoxaparin 40 Mg/0.4 Ml Syringe SUB-Q 40 mg DAILY [facility] Administration Piperacillin/Tazobactam/Dextrose 3.375 gm in 50 mls @ 100 mls/hr 08/13/24 08:00 08/15/24 09:17 Zosyn 3.375 Gm/Ns 50 Ml IVPB Infused Q6H [facility]ST[facility] Infusion Lactated Ringer's 1,000 mls @ 100 mls/hr 08/13/24 14:27 08/15/24 03:09 Lr - Lactated Ringers Iv IV CONT Not Given .Q10H TRISTAN Ibuprofen 800 mg in 200 mls @ 400 mls/hr 08/13/24 14:27 08/14/24 20:23 Caldolor 800 Mg/200 Ml IVPB Infused Q6H PRN Infusion Breakthrough Pain Rated 1-3 or NPO Metformin HCl 500 mg 08/13/24 17:00 08/15/24 08:46 Metformin Hcl Xr 500 Mg Tab.Sr.24h PO 500 mg BID TRISTAN Administration Morphine Sulfate 2 mg 08/13/24 14:27 Morphine Sulfate (*Crx) 2 Mg/Ml Inj IV PUSH Q2H PRN Breakthrough Pain Rated 4-6 or NPO Morphine Sulfate 4 mg 08/13/24 14:27 08/14/24 03:00 Morphine Sulfate (*Crx) 4 Mg/Ml Inj IV PUSH 4 mg Q2H PRN Administration Breakthrough Pain Rated 7-10 or NPO Naloxone HCl 0.1 mg 08/13/24 14:27 Naloxone Hcl 0.4 Mg/Ml Vial IV PUSH Q2M PRN Opiate Reversal Non-Formulary Medication 1 tablet 08/14/24 21:00 08/14/24 20:40 Norgestrel-Ethinyl Estradiol [Cryselle (28)] PO 09/13/24 20:59 1 tablet HS TRISTAN Administration Non-Formulary Medication 80 mg 08/14/24 21:00 08/14/24 20:40 Propranolol PO 09/13/24 20:59 80 mg HS TRISTAN Administration Ondansetron HCl 4 mg 08/13/24 14:27 08/15/24 08:47 Ondansetron Inj 4 Mg/2 Ml Vial IV PUSH 4 mg Q4H PRN Administration Nausea And Vomiting Oxycodone/Acetaminophen 1 tablet 08/13/24 14:27 08/15/24 08:46 Oxycodone/Acetaminophen (*Crx) 5-325 Mg Tablet PO 1 tablet Q4H PRN Administration Pain Rated 4-6 Pantoprazole Sodium 40 mg 08/14/24 09:00 08/15/24 08:47 Pantoprazole 40 Mg Tablet PO 40 mg Q12HR TRISTAN Administration Rizatriptan Benzoate 10 mg 08/13/24 14:27 Rizatriptan Benzoate 10 Mg Odt PO PRN PRN Migraine Headache Simvastatin 40 mg 08/14/24 09:00 08/15/24 08:47 Simvastatin 20 Mg Tablet BY MOUTH 40 mg DAILY [facility] Administration Sucralfate 1 gm 08/13/24 14:27 08/13/24 19:54 Sucralfate 1 Gm Tablet PO 1 gm Q4H PRN Administration abdominal pain Vitamin D 250 mcg 08/14/24 09:00 08/15/24 08:47 Cholecalciferol (Vitamin D3) 125 Mcg (5,000 Units) Tablet PO 250 mcg DAILY TRIST[facility] Administration Radiology Results: ITS Impressions Abdomen/Pelvis CT 08/13/24 05:15 Impression: Acute appendicitis with extensive periappendiceal inflammatory change and/or developing phlegmon. No abscess or free air. Labs Labs: Laboratory Results - last 24 hr 08/15/24 06:52 WBC 9.6 RBC 4.03 L Hgb 9.0 L Hct 31.0 L MCV 76.9 L MCH 22.3 L MCHC 29.0 L RDW 17.0 H Plt Count 292 MPV 10.9 H Sodium 134 L Potassium 3.9 Chloride 101 Carbon Dioxide 26 Anion Gap 7 BUN 10 Creatinine 1.04 H Estim Creat Clear Calc 80 Estimated GFR 57 L Glucose 111 H Calcium 8.6 C-Reactive Protein 35.4 H
[2024-08-15 14:00] VITALS: BP 139/72; PULSE 80; RESP 16; TEMP 36.4; O2SAT 96
[2024-08-15 20:43] VITALS: BP 140/76; PULSE 82; RESP 16; TEMP 36.5; O2SAT 96
[2024-08-15] MEDS: [UNRECOGNIZED DRUG - OTHER] PO (21:00)
[2024-08-15] MEDS: NORGESTREL ETHINYL ESTRADIOL PO (21:00)
[2024-08-15] MEDS: [UNRECOGNIZED DRUG - OTHER] PO (21:01)
[2024-08-15] MEDS: PROPRANOLOL 80 MG PO (21:01)
[2024-08-16] MEDS: oxyCODONE/ACETAMINOPHEN (*CRX) 5-325 MG TABLET 1 TABLET PO ×2 (00:15→08:21)
[2024-08-16] MEDS: PIPERACILLN/TAZ 3.375GM/NS50ML 3.375 GM/50 ML BAG IVPB ×2 (01:17→08:18)
[2024-08-16] MEDS: LACTATED RINGERS 1,000 ML 100 ML IV CONT (04:26)
[2024-08-16] MEDS: ACETAMINOPHEN 500 MG TABLET PO (05:05)
[2024-08-16 05:39] VITALS: BP 129/71; PULSE 78; RESP 20; TEMP 36.2; O2SAT 97
[2024-08-16 06:04] LABS: Basophils Percent Auto 0.4 % (0.2-1.2); Eosinophils Absolute Auto 0.1 K/mm3 (0-0.3); Eosinophils Percent Auto 1.3 % (0-4.4); Hematocrit 29.6 % (37.0-47.0); Hemoglobin 8.7 g/dL (12.0-15.0); Immature Granulocyte Percent A 2.1 % (0-0.5); Lymphocytes Percent Auto 8.3 % (18.3-44.2); Mean Corpuscular HGB Conc 29.4 g/dl (32-36); Mean Corpuscular Hemoglobin 22.6 pg (26-34); Mean Corpuscular Volume 76.9 fl (80-100); Monocytes Absolute Auto 0.7 K/mm3 (0.1-0.6); Neutrophils Absolute Auto 7.8 K/mm3 (1.3-6.7); Neutrophils Percent Auto 80.9 % (45.5-73.1); Nucleated Red Blood Cells Perc 0.3 % (0.0-0.2); Platelet Count Result 294 k/mm3 (150-375); Red Blood Count 3.85 M/mm3 (4.2-5.4); Red Cell Distribution Width 16.9 % (11.5-14.5); White Blood Count 9.6 K/mm3 (4.5-10.0)
[2024-08-16 06:23] LABS: Anion Gap 5 mmol/L (4-12); Blood Urea Nitrogen 5 mg/dL (7-17); Calcium 8.5 mg/dL (8.4-10.2); Carbon Dioxide 28 mmol/L (22-30); Chloride 100 mmol/L (98-107); Estimated CRCL calculation 89 ml/min; Estimated Glomerular Filt Rate > 60; Glucose 110 mg/dL (65-110); Potassium 3.5 mmol/L (3.4-5.0); Sodium 133 mmol/L (137-145)
[2024-08-16 06:42] LABS: Hypochromasia 1+; Platelet Estimate Adequate (Adequate); Schistocytes None Seen
[2024-08-16] MEDS: ONDANSETRON INJ 4 MG/2 ML VIAL IV PUSH (08:16)
[2024-08-16] MEDS: SIMVASTATIN 20 MG TABLET 40 MG BY MOUTH (08:22)
[2024-08-16] MEDS: ASPIRIN 81 MG ENTERIC TABLET PO (08:22)
[2024-08-16] MEDS: CHOLECALCIFEROL (VITAMIN D3) 125 MCG (5,000 UNITS) TABLET 250 MCG PO (08:22)
[2024-08-16] MEDS: CYANOCOBALAMIN 1,000 MCG TABLET 1000 MCG PO (08:22)
[2024-08-16] MEDS: PANTOPRAZOLE 40 MG TABLET PO (08:22)
[2024-08-16] MEDS: metFORMIN HCL XR 500 MG TAB.SR.24H PO (08:22)
--- NOTE | 2024-08-16 09:44 | P.PNGS_ITS ---
Progress Note: A&P Assessment and Plan (1) Acute appendicitis with perforation, localized peritonitis, abscess, and gangrene: Code(s): K35.33 - Acute appendicitis with perforation, localized peritonitis, and gangrene, with abscess Status: Acute Assessment and Plan: * Still having right-sided pain, but controlled with oral analgesics. She feels the nausea is related to the Percocet, will transition to [place] which she has tolerated well in the past. Continue Zofran PRN. Will advance to a regular diet. Continue to monitor WENDY drain, which only has serous output. WBC count normal, diff improving. CRP down to 29 today. Continue IV Zosyn for now. Will consider discharge on oral antibiotics later today or tomorrow once tolerating a solid diet. Plan I have discussed the patient's case and plan of care with Dr. Link. Subjective Subjective Date/Time Seen: 08/16/24 09:44 Post Op day: 3 (Laparoscopic appendectomy, drainage intra-abdominal abscess) Patient reports: tolerating liquids well (Full liquids), voiding w/o difficulty, flatus, no bowel movement and afebrile Interval history: Patient doing well today. Still complaining of some right lower quadrant pain, which reportedly has been improving. Her pain is being controlled with the Percocet, but she reports having nausea following medication. She believes that she previously tolerated hydrocodone well. She is up walking the halls. Tolerating full liquids. Minimal output from WENDY drain. Exam Const: General: comfortable and no acute distress GI: Inspection: non-distended, incision (incisions dry and glue intact) and other (WENDY drain with scant serous drainage) GI Palp: Yes Soft to palpation, No Tenderness to palpation present (GI) and No Guarding due to palpation present (GI) Auscultation: normal bowel sounds Neuro: General: moves all extremities and no focal motor deficits Extrem: General: no calf tenderness and no edema Psych: Mental Status: mental status grossly normal Insight: Good insight present (Psych) Objective Data Vital Signs Vital Signs: Vital Signs - 24 hr 08/15/24 14:00 08/15/24 20:00 08/15/24 20:43 Temperature 97.6 F 97.7 F Pulse Rate 80 82 Respiratory Rate 16 16 Blood Pressure 139/72 140/76 Pulse Oximetry 96 96 Oxygen Delivery Room Air 08/16/24 05:39 Temperature 97.2 F L Pulse Rate 78 Respiratory Rate 20 Blood Pressure 129/71 Pulse Oximetry 97 Oxygen Delivery Intake/Output Intake/Output: Intake & Output 08/13/24 08/14/24 08/15/24 08/16/24 23:59 23:59 23:59 23:59 Intake Total 4905 4365 3620 2180 Output Total 60 30 20 3 Balance 4845 4335 3600 2177 Meds/Results Medications: Active Medications Generic Name Dose Route Start Last Admin Trade Name Freq PRN Reason Stop Dose Admin Acetaminophen 500 mg 08/13/24 14:27 08/16/24 05:05 Acetaminophen 500 Mg Tablet PO 500 mg Q6H PRN Administration Pain Rated 1-3 Aspirin 81 mg 08/14/24 09:00 08/16/24 08:22 Aspirin 81 Mg Enteric Tablet PO 81 mg DAILY TRISTAN Administration Cyanocobalamin 1,000 mcg 08/14/24 09:00 08/16/24 08:22 Cyanocobalamin 1,000 Mcg Tablet PO 1,000 mcg DAILY TRISTAN Administration Enoxaparin Sodium 40 mg 08/14/24 09:00 08/16/24 08:24 Enoxaparin 40 Mg/0.4 Ml Syringe SUB-Q Not Given DAILY TRISTAN Piperacillin/Tazobactam/Dextrose 3.375 gm in 50 mls @ 100 mls/hr 08/13/24 08:00 08/16/24 08:48 Zosyn 3.375 Gm/Ns 50 Ml IVPB Infused Q6H TRISTAN Infusion Ibuprofen 800 mg in 200 mls @ 400 mls/hr 08/13/24 14:27 08/14/24 20:23 Caldolor 800 Mg/200 Ml IVPB Infused Q6H PRN Infusion Breakthrough Pain Rated 1-3 or NPO Metformin HCl 500 mg 08/13/24 17:00 08/16/24 08:22 Metformin Hcl Xr 500 Mg Tab.Sr.24h PO 500 mg BID TRISTAN Administration Morphine Sulfate 2 mg 08/13/24 14:27 Morphine Sulfate (*Crx) 2 Mg/Ml Inj IV PUSH Q2H PRN Breakthrough Pain Rated 4-6 or NPO Morphine Sulfate 4 mg 08/13/24 14:27 08/14/24 03:00 Morphine Sulfate (*Crx) 4 Mg/Ml Inj IV PUSH 4 mg Q2H PRN Administration Breakthrough Pain Rated 7-10 or NPO Naloxone HCl 0.1 mg 08/13/24 14:27 Naloxone Hcl 0.4 Mg/Ml Vial IV PUSH Q2M PRN Opiate Reversal Non-Formulary Medication 1 tablet 08/14/24 21:00 08/15/24 21:00 Norgestrel-Ethinyl Estradiol [Cryselle (28)] PO 09/13/24 20:59 1 tablet HS TRISTAN Administration Non-Formulary Medication 80 mg 08/14/24 21:00 08/15/24 21:01 Propranolol PO 09/13/24 20:59 80 mg HS TRISTAN Administration Ondansetron HCl 4 mg 08/13/24 14:27 08/16/24 08:16 Ondansetron Inj 4 Mg/2 Ml Vial IV PUSH 4 mg Q4H PRN Administration Nausea And Vomiting Oxycodone/Acetaminophen 1 tablet 08/13/24 14:27 08/16/24 08:21 Oxycodone/Acetaminophen (*Crx) 5-325 Mg Tablet PO 1 tablet Q4H PRN Administration Pain Rated 4-6 Pantoprazole Sodium 40 mg 08/14/24 09:00 08/16/24 08:22 Pantoprazole 40 Mg Tablet PO 40 mg Q12HR TRISTAN Administration Rizatriptan Benzoate 10 mg 08/13/24 14:27 Rizatriptan Benzoate 10 Mg Odt PO PRN PRN Migraine Headache Simvastatin 40 mg 08/14/24 09:00 08/16/24 08:22 Simvastatin 20 Mg Tablet BY MOUTH 40 mg DAILY TRISTAN Administration Sucralfate 1 gm 08/13/24 14:27 08/13/24 19:54 Sucralfate 1 Gm Tablet PO 1 gm Q4H PRN Administration abdominal pain Vitamin D 250 mcg 08/14/24 09:00 08/16/24 08:22 Cholecalciferol (Vitamin D3) 125 Mcg (5,000 Units) Tablet PO 250 mcg DAILY TRISTAN Administration Radiology Results: ITS Impressions Abdomen/Pelvis CT 08/13/24 05:15 Impression: Acute appendicitis with extensive periappendiceal inflammatory change and/or developing phlegmon. No abscess or free air. Labs Labs: Laboratory Results - last 24 hr 08/16/24 05:51 WBC 9.6 RBC 3.85 L Hgb 8.7 L Hct 29.6 L MCV 76.9 L MCH 22.6 L MCHC 29.4 L RDW 16.9 H Plt Count 294 MPV 10.0 Immature Gran % (Auto) 2.1 H Neut % (Auto) 80.9 H Lymph % (Auto) 8.3 L [place] % (Auto) 7.0 Eos % (Auto) 1.3 Baso % (Auto) 0.4 Lymph # (Auto) 0.80 L [place] # (Auto) 0.7 H Eos # (Auto) 0.1 Baso # (Auto) 0.0 Abs Immat Gran (auto) 0.20 H Absolute Neuts (auto) 7.8 H Absolute Nucleated RBC 0.030 H Band Neutrophils % Not Reportable Nucleated RBC % 0.3 H Platelet Estimate Adequate Hypochromasia 1+ Schistocytes None seen Sodium 133 L Potassium 3.5 Chloride 100 Carbon Dioxide 28 Anion Gap 5 BUN 5 L D Creatinine 0.92 Estim Creat Clear Calc 89 Estimated GFR > 60 Glucose 110 Calcium 8.5 C-Reactive Protein 29.0 H
[2024-08-16] MEDS: AMOXICILLIN/CLAVULANATE K 875-125 MG TAB 1 TABLET PO (12:14)
[2024-08-16] MEDS: HYDROcodone/acetaminophen (*CRX) 5-325 MG TABLET 1 TAB PO (12:14)
[2024-08-16 14:00] VITALS: BP 124/75; PULSE 77; RESP 16; TEMP 36.2; O2SAT 95
--- NOTE | 2024-08-16 14:23 | P.DS_ITS ---
DS: Admitting Diagnosis Discharge Date 08/16/2024 Admitting Diagnosis Acute appendicitis DS: Discharge Diagnosis Discharge Diagnosis (1) Acute appendicitis with perforation, localized peritonitis, abscess, and gangrene: Code(s): K35.33 - Acute appendicitis with perforation, localized peritonitis, and gangrene, with abscess Status: Acute (2) Obesity: Code(s): E66.9 - Obesity, unspecified Status: Acute DS: Summary Hospital Course Reason for hospitalization: This is a 44-year-old female who presented to the ED with right lower quadrant abdominal pain x 5 days. Workup in the ED showed CT evidence of acute appendicitis with a large appendicolith at the base of the appendix. White blood cell count [id number] on admission labs. She was admitted in this setting for surgical evaluation and treatment of acute appendicitis. Hospital Course: Patient started on broad-spectrum IV antibiotics and taken promptly to the OR. She underwent laparoscopic appendectomy for ruptured appendicitis, drainage of intra-abdominal abscess by Dr. Abdul on 08/13/2024. She had AP drain placed during surgery and monitored postoperatively. Labs were routinely followed daily after surgery. Her white blood cell count normalized by postop day 2, and remained normal. She has been afebrile since surgery. She has had some right- sided abdominal pain that has overall improved since surgery and is currently well controlled with oral pain medication. She did have intermittent nausea postoperatively, which was felt to be related to her Percocet and improved after switching to hydrocodone. Her diet was advanced to a regular diet by postop day 3. She has been tolerating activity in ambulating without difficulty. Labs also initially showed mild CANDACE on postop day 1 with a creatinine of 1.11, which normalized by postop day 3. She is stable for discharge by postop day 3 with transition oral antibiotics. WENDY drain will be continued on discharge with close follow-up on with Dr. Abdul in our office. Status at Discharge Functional status at discharge: independent ambulation Overall status at discharge: patient is progressing back to baseline Time Spent with Patient Time attestation: Total time spent providing and/or coordinating discharge services: Time spent: Greater than 30 minutes DS: Data Data Completed and Pending Completed studies during hospitalization: Pending at discharge 08/13/24 12:10 Surgical [PTH] Routine Labs on day of discharge: Labs from last 24 hours 08/16/24 05:51 WBC 9.6 RBC 3.85 L Hgb 8.7 L Hct 29.6 L MCV 76.9 L MCH 22.6 L MCHC 29.4 L RDW 16.9 H Plt Count 294 MPV 10.0 Immature Gran % (Auto) 2.1 H Neut % (Auto) 80.9 H Lymph % (Auto) 8.3 L [place] % (Auto) 7.0 Eos % (Auto) 1.3 Baso % (Auto) 0.4 Lymph # (Auto) 0.80 L [place] # (Auto) 0.7 H Eos # (Auto) 0.1 Baso # (Auto) 0.0 Abs Immat Gran (auto) 0.20 H Absolute Neuts (auto) 7.8 H Absolute Nucleated RBC 0.030 H Band Neutrophils % Not Reportable Nucleated RBC % 0.3 H Platelet Estimate Adequate Hypochromasia 1+ Schistocytes None seen Sodium 133 L Potassium 3.5 Chloride 100 Carbon Dioxide 28 Anion Gap 5 BUN 5 L D Creatinine 0.92 Estim Creat Clear Calc 89 Estimated GFR > 60 Glucose 110 Calcium 8.5 C-Reactive Protein 29.0 H Preliminary micro results at discharge 08/13/24 02:35 Blood Culture - Preliminary Blood 08/13/24 02:35 Blood Culture - Preliminary Blood Procedures/Treatments: Procedures Operation Date: 08/13/24 11:30 Actual Procedure Side Surgeon p Laparoscopic Appendectomy Not Applicable Ronal Abdul MD Imaging Radiologist's impression: ITS Impressions Abdomen/Pelvis CT 08/13/24 05:15 Impression: Acute appendicitis with extensive periappendiceal inflammatory change and/or developing phlegmon. No abscess or free air. Discharge Plan Discharge Attending physician on discharge: Ronal Abdul Discharging Clinician: Kerline Styles Anticipated Discharge Date/Time: 08/16/24 14:23 Patient Disposition: Home Activity: other - see discharge instructions Diet: as tolerated and regular Wound Care Instructions: incision open to air Discharge Instructions: DISCHARGE INSTRUCTION SHEET FOR HERNIA AND LAP BENITO SURGERIES DR. ABDUL 1. Sponge bathe until your drain is removed and your surgeon gives further instructions on bathing. 2. Call office for: * Wound increasingly painful or bleeding * Vomiting * Fever of greater than 101 degrees * Worsening abdominal pain 3. Expect some blood on dressing and old blood on skin. 4. Stairs are okay. Walking is good. 5. No heavy lifting > 10-15 pounds x 2-3 weeks for laparoscopic appendectomy. 6. No driving for 3 days or while taking narcotic pain medications. 7. Up walking 10-30 minutes three times per day. 8. Empty and record output from your drain daily. Write this down and bring this information to your follow-up appointment with the surgeon. Keep drain dressing dry. 9. Follow-up with Dr. Abdul on for possible drain removal. Our office will schedule the appt and call you with the time/date. Call sooner with questions or concerns. 10. Oral pain medications prescription sent to the pharmacy electronically Patient Instructions: Antibiotic Form, Soft Diet (GEN), Laparoscopic Appende ctomy (GEN) Patient Language: Spanish Stand Alone Forms: General Discharge Information Follow-up/Referrals: Ronal Abdul MD [Physician] - 08/19/24 Discharge Medications: New hydrocodone-acetaminophen 5-325 mg Tablet 1 tablet PO Q4-6H PRN (Reason: Pain Rated 4-6) Qty: 16 0RF amoxicillin-pot clavulanate 875-125 mg tablet 1 tablet PO Q12H Qty: 15 0RF Continued metformin 500 mg tablet extended release 24 hr 500 mg PO BID Qty: 180 3RF propranolol 80 mg capsule,extended release 24 hr 80 mg PO DAILY [place] (28) 0.3-30 mg-mcg tablet 1 tablet PO DAILY omeprazole 40 mg capsule,delayed release(DR/EC) 80 mg PO DAILY Qty: 180 1RF sucralfate [Carafate] 1 gram tablet 1 g PO Q4H PRN (Reason: abdominal pain) Qty: 90 1RF aspirin [Adult Low Dose Aspirin] 81 mg tablet,delayed release (DR/EC) 81 mg PO DAILY rizatriptan 10 mg tablet 10 mg PO .COMPLEX Rx Instructions: Take 1 tablet at onset of migraine, may repeat at 2 hour intervals--Do not exceed 30mg in 24 hours cyanocobalamin (vitamin B-12) 1,000 mcg tablet 1,000 mcg PO DAILY cholecalciferol (vitamin D3) 125 mcg (5,000 unit) tablet 10,000 unit PO DAILY simvastatin 40 mg tablet See Rx Instructions .ROUTE .COMPLEX Qty: 90 1RF Dose Instruction: TAKE 1 TABLET BY MOUTH DAILY Rx Instructions: TAKE 1 TABLET BY MOUTH DAILY Date of admission: 08/13/24 14:27 Primary Care Provider: Dallas Milton Admitting Provider: Ronal Abdul Attending physician on admission: Ronal Abdul Condition: Stable Quality VTE Prophylaxis VTE prophylaxis: mechanical ordered and pharmacologic ordered
--- NOTE | 2024-08-17 08:18 | P.CDI_ITS ---
CDI Query Clarification Request Patient with a BMI of 42.6 please provide a diagnosis to accompany this finding: * Overweight * Obesity * Morbid Obesity * Other/Unknown
--- NOTE | 2024-08-17 08:18 | WPDCDIQUERY2 ---
CDI Query Clarification Request Patient with a BMI of 42.6 please provide a diagnosis to accompany this finding: Overweight Obesity Morbid Obesity Other/Unknown
== END 2024-08-16 15:05 | disposition home or self-care (01) | DRG 398 ==
LOC: ANHED 08-13 02:48 → ANH3MEDSUR 08-13 04:20
PROVIDERS: Admitting Provider Surgery; Emergency Provider Registered Nurse; PCP Family Medicine; Visit Provider Nurse Practitioner Family
PROC: 0DTJ4ZZ Resection of Appendix, Percutaneous Endoscopic Approach (ICD-10-PCS; CPT 44970; principal; 2024-08-13 11:30)
DX: K35.33 Acute appendicitis with perforation, localized peritonitis, and gangrene, with abscess (principal); Z68.41 Body mass index [BMI] 40.0-44.9, adult; K38.1 Appendicular concretions; Z86.16 Personal history of COVID-19; E66.01 Morbid (severe) obesity due to excess calories
CPT/HCPCS: 36415; 74177; 80048; 80053; 81001; 81025; 82948; 83605; 83690; 84484; 85025; 85027; 85610; 85730; 86140; 86850; 86900; 86901; 87040; 88304; 93005; 96361; 96365; 96374; 96375; 99285; A9270; G0378; J1100; J1171; J1200; J1650; J1741; J1885; J2003; J2250; J2270; J2405; J2543; J2704; J3010; J7030; J7120; Q9967